=== PATIENT | female | born 1965 | race Caucasian/White ===

== ENCOUNTER → 2016-10-26 | Outpatient (CLI) | payer BC ==
[~2016-10-26] MED LIST: ATV/1 PO; CETI10CH PO; LYSI1TAB2 PO; NXM/40 PO; PSEU-170 PO; VLT500 PO
--- NOTE | 2016-10-26 14:48 | MAMMOGRAPHY REPORT ---
BILATERAL DIGITAL SCREENING MAMMOGRAM TOMOSYNTHESIS WITH CAD: 10/26/2016 CLINICAL HISTORY: Routine screening. Patient has no complaints. TECHNIQUE: Breast tomosynthesis in addition to standard 2D mammography was performed. Current study was also evaluated with a Computer Aided Detection (CAD) system. COMPARISON: Comparison is made to exams dated: 10/23/2015 mammogram, 10/21/2014 mammogram, 10/18/2013 m ammogram, 10/15/2013 mammogram, 10/05/2012 mammogram, and 09/01/2010 mammogram - [facility] enter. BREAST COMPOSITION: The tissue of both breasts is almost entirely fatty. FINDINGS: No suspicious masses, calcifications, or areas of architectural distortion are noted in ei ther breast. There has been no significant interval change compared to prior exams. A linear scar ma rker denotes a scar on the right medial breast. Bilateral benign-appearing calcifications are not si gnificantly changed. IMPRESSION: ACR BI-RADS CATEGORY 2: BENIGN There is no mammographic evidence of malignancy. A 1 year screening mammogram is recommended. The pa tient will receive written notification of the results. Approximately 10% of breast cancers are not detected with mammography. A negative mammographic report should not delay biopsy if a clinically suggestive mass is present. Domenica Sanchez M.D. ah/:10/26/2016 08:03:09 Horologist Apprentice: Luisa CASTILLO(Liban)(M), [facility] letter sent: Normal 1/2 BI-RADS Code: ACR BI-RADS Category 2: Benign
== END | disposition home or self-care (01) ==
LOC: C.MAMM 07:03
PROVIDERS: ATTEND Obstetrics & Gynecology
DX: Z12.31 Encounter for screening mammogram for malignant neoplasm of breast (principal)

== ENCOUNTER 2023-06-11 18:55 | Inpatient (IN) ==
--- OUTSIDE RECORDS SUMMARY | 2023-06-11 18:58 | External Medical Summary | Continuity of Care Document ---
Author Name Unknown Organization [id number] Address [address] [place] [address] [id number] Care Team Providers Care Helium Arc Welder Name Role Phone VonfarhadCourt Primary Care Physician [phone] Encounter [id number] Date(s): 02/23/23 - 02/23/23 [facility] Medicine [address] [address] Encounter Diagnosis Ingrown right big toenail(Discharge Diagnosis) - 02/23/23 Discharge Disposition: Home or Self Care Attending Physician: CELENA Fragoso Christina L Allergies, Adverse Reactions, Alerts Substance Reaction Severity Status Keflex Unknown reaction Active Animal dander Nasal congestion Moderate Active red dye 1 unknown reaction Mild Active chocolate Hives Moderate Active PCN (penicillin) rash Active 1ALL FOOD DYES Assessment and Plan Extracted from: Title:Follow Up Visit Author:CELENA Fragoso, Sudeep Caba Date:02/23/23 1.Ingrown right big toenail Again discussed with patient proper nail care and trimming of nail and use of emery boardnail evaluated no acute infection again patient defers in officepartial nail avulsion with phenol due to severe anxietyat this point not need of returning to the OR for removal due to lack of infectionarea was filed and pain resolved patient may follow-up with me on an as-needed basis. 17-minute follow-up visit, 5 minutes chart review, 12 minutes [id number] Medications cetirizine 10 mg oral tablet Start: 04/17/19 15:29:00 EST, 1 tab, PO, Daily, PRN: as needed for allergy symptoms Start Date: 04/17/19 Status: Ordered Cipro 500 mg oral tablet Start: 03/23/16 9:14:00, 1 tab, PO, q12h, Disp# 14 tab, Pharmacy: [id number] Start Date: 03/23/16 Stop Date: 03/30/16 Status: Ordered NexIUM 40 mg oral delayed release capsule Start: 03/23/16 8:25:00, 1 cap, PO, Daily Start Date: 03/23/16 Status: Ordered phenylephrine 10 mg oral tablet Start: 06/27/22 11:26:00 EST, 1 tab, PO, q4h, PRN: as needed for nasal congestion Start Date: 06/27/22 Status: Ordered Mental Status 02/23/23 Barriers to Learning one year None evide nt Mandatory Health Literacy Documentation Yes Health Literacy Communication Barriers N ever Primary Language Cuban Problem List Condition Confirmation Course Effective Dates Status Health St atus Informant Ingrown right big toenail Confirmed Active Ingrown toenail Confirmed Active Dysuria Confirmed Active Diagnosis Diagnosis Type Effective Dates Health Status Cl inical Service Informant Ingrown right big toenail Discharge Diagnosis 02/23/23 Procedures Procedure Date Related Diagnosis Body Site Status Ablation Completed Hysterectomy Completed Tonsillectomy and adenoidectomy Completed [place] tooth Completed Vital Signs Most recent to oldest [Reference Range]: 1 Height 160 cm (02/23/23 8:05 AM) Patient Weight 93.2 kg (02/23/23 8:05 AM) Body Mass Index 36.41 kg/m2 (02/23/23 8:05 AM) Social History Social History Type Response Smoking Status Never smoked cigaret prem Sex Female Ortho Outpt Note * CELENA Fragoso Christina L: PERFORM Event Display: Ortho Outpt Note Authored Date: [id number] Chief Complaint Right great toe Ingrown nail growing back Primary Care Provider DO Conner Carey K Subjective Patient is a verypleasant 57-year-old female presenting today for follow- uphistory of medial nail border of the right hallux that becomes painfulshe follows up today for evaluation last seen June 27, 2022. -Right halluxmedial nail borderwith some incurvation but no acute paronychia no infection pain is mildpatient has extreme anxiety for in office proceduresnot a candidate for an office partialnail avulsion with phenol due to previousreaction where she fainted would need an OR at this point deferringdue to lack of severe discomfort and no infection. Review of Systems No pertinent positives Objective Vitals & Measurements WT:93.200kg(Dosing) WT:93.2kg Physical Exam Problem focused right foot: Dorsalis pedis posterior tibial pulses fully palpable on the right foot. Neurovascular status is intactto all digits of the right foot. Medial nail border right hallux status post partial nail avulsion performed February 2020,no acutecellulitis no infection base of the toenailwiththickening callus tissueand toenail,no acuteparonychia present. Assessment/Plan 1.Ingrown right big toenail Again discussed with patient proper nail care and trimming of nail and use of emery boardnail evaluated no acute infection again patient defers in officepartial nail avulsion with phenol due to severe anxietyat this point not need of returning to the OR for removal due to lack of infectionarea was filed and pain resolved patient may follow-up with me on an as-needed basis. 17-minute follow-up visit, 5 minutes chart review, 12 minutes [id number] Electronic Signature on File Electronically Reviewed/Signed by: Christine Fragoso DPM Author Signature Dt/Tm:02/23/2023 08:18 AM Division of Sports Medicine CLR Patient Care team information Care Team Personnel Name: DO Conner Carey K Position: Referring DIRECT Member Role: Primary Care Provider Address: Address: [address] [place] [address] [place] Care Team Related Persons Name: HERSON TRIPP Address: home [address] [place] [address] [id number] [place] [address]
--- NOTE | 2023-06-11 19:28 | Emergency Department Note ---
History of Present Illness General Chief complaint: Cardiac Assessment Stated complaint: CHEST PAIN, DIFFICULY BREATHING Time Seen by Provider: 06/11/23 19:15 History of Present Illness Maximum Pain Intensity: 10 NAME: JANY IVORY AGE: 57 SEX: F : 1965 ARRIVES VIA: Walk-In INFORMANT: Patient ED PROVIDER(S): SAILAJA Farr, Iban Phillips, The patient is a 57-year-old female who arrives to the emergency department for evaluation of midsternal chest pain, and shortness of breath starting around 5:30 PM she reports she was sitting at the time visiting with family when she began to have pressure and burning in the center of her chest. She denies any history of cardiac events, she reports she does have a history of GERD. She denies fever, nausea, vomiting, lower extremity edema. Home Medications Medication Instructions Recorded Confirmed Type cetirizine 10 mg capsule 10 mg PO QAM 04/12/18 06/11/23 History cholecalciferol (vitamin D3) 50 2,000 units PO QAM 02/07/19 06/11/23 History mcg (2,000 unit) tablet esomeprazole magnesium 20 mg 20 mg PO QAM 01/30/20 06/11/23 History capsule,delayed release (Nexium) valacyclovir 500 mg tablet 500 mg PO BID PRN Cold Sores #30 04/18/22 06/11/23 Rx (Valtrex) tabs glucosamine sulfate 500 mg tablet 475 mg PO DAILY 08/24/22 06/11/23 History (Glucosamine) phenylephrine HCl 10 mg tablet 10 mg PO Q6H PRN Congestion 08/24/22 06/11/23 History lysine 500 mg tablet 500 mg PO 3XWK 06/11/23 06/11/23 History magnesium oxide 400 mg PO .3-4XWK 06/11/23 06/11/23 History miwvaaqfnxon-kespbdhb-jhmaiu 1 tab PO 3XWK 06/11/23 06/11/23 History tablet (Multivitamin 50 Plus tablet) Allergies Allergy/AdvReac Type Severity Reaction Status Date / Time adhesive Allergy Intermediate Rash Verified 06/11/23 21:58 metronidazole Allergy Intermediate RASH Verified 06/11/23 21:58 Penicillins Allergy Intermediate Rash Verified 06/11/23 21:58 ethinyl estradiol AdvReac Severe SEVERE Verified 06/11/23 21:58 [From Juan Jose (28)] GLAUCOMA norgestrel AdvReac Severe SEVERE Verified 06/11/23 21:58 [From Juan Jose ()] GLAUCOMA chocolate flavor AdvReac Intermediate COLD SORES Verified 06/11/23 21:58 AROUND MOUTH erythromycin base AdvReac Intermediate GI SYMPTOMS Verified 06/11/23 21:58 montelukast AdvReac Intermediate ABD Verified 06/11/23 21:58 PAIN,BLOATING, CONSTIPATION FOOD DYES AdvReac Intermediate UNKNOWN Uncoded 06/11/23 21:58 PER [facility] Past Med/Surg History Medical History Obesity Endometriosis Fibromyalgia GERD (gastroesophageal reflux disease) Temporomandibular joint disorder Migraine Asthma A CHILD Anxiety Surgical History History of colonoscopy History of cataract surgery Bilateral History of anesthesia reaction VERY SLOW TO WAKE UP History of breast biopsy History of total abdominal hysterectomy and bilateral salpingo-oophorectomy History of esophagogastroduodenoscopy (EGD) History of tooth extraction History of tonsillectomy History of adenoidectomy History of cardiac cath 2015 R/T VASOVAGAL EVENT (NO INTERVENTION) Family History Mother Hypothyroid Sister Hypothyroid Grandmother (Maternal) Diabetes Other No family history of adverse response to anesthesia Denies family history of Ovarian cancer Breast cancer Colorectal cancer Social History Smoking Status: Never smoker Second Hand Exposure: No; Do You Dip or Chew Tobacco: No; Tobacco Cessation Education Requested by Patient: No Hx Alcohol Use: Yes Alcohol type: hard liquor Hx Substance Use: No Preferred Language: Maltese Communication Ability: Effective Milling Machine Operator Required: No Beliefs That Will Affect Care: None Current Living Situation: Parent Current Living Situation Comment: Lives with Mother. Other Information That Helps Us Care for You: No Feels Safe at Home: Yes Safety Concerns: Feels Safe At This Time Assistive Devices: Glasses and Hospital Bed Physical Exam Vital Signs Vital Signs - 24 hr 06/11/23 18:57 06/11/23 19:28 06/11/23 19:46 Temperature 36.5 C Temperature Source Temporal Artery Scan Pulse Rate 79 76 Pulse Rate [Right Finger] 74 Respiratory Rate 20 19 Respiratory Effort / Characteristics Respiratory Depth Respiratory Pattern Blood Pressure 186/131 H Blood Pressure [Right Arm] 197/118 H Blood Pressure Mean 149 Blood Pressure Mean [Right Arm] 144 Pulse Oximetry 99 98 Oxygen Delivery Method Room Air Sepsis Recent Fever Within 48 Hours No Sepsis New/Unexplained Change in Mental Status No Sepsis Action Taken by Nursing No Action Required 06/11/23 21:00 06/11/23 22:31 06/11/23 23:00 Temperature Temperature Source Pulse Rate 68 Pulse Rate [Right Finger] 73 89 Respiratory Rate 16 19 18 Respiratory Effort / Characteristics Respiratory Depth Respiratory Pattern Blood Pressure Blood Pressure [Right Arm] 179/95 H Blood Pressure Mean Blood Pressure Mean [Right Arm] 123 Pulse Oximetry 97 97 95 Oxygen Delivery Method Room Air Room Air Room Air Sepsis Recent Fever Within 48 Hours Sepsis New/Unexplained Change in Mental Status Sepsis Action Taken by Nursing 06/11/23 23:15 06/12/23 00:00 Temperature Temperature Source Pulse Rate 70 Pulse Rate [Right Finger] 69 Respiratory Rate 20 Respiratory Effort / Characteristics Non-Labored Spontaneous Respiratory Depth Normal Respiratory Pattern Regular Blood Pressure Blood Pressure [Right Arm] Blood Pressure Mean Blood Pressure Mean [Right Arm] Pulse Oximetry 94 Oxygen Delivery Method Room Air Sepsis Recent Fever Within 48 Hours Sepsis New/Unexplained Change in Mental Status Sepsis Action Taken by Nursing VITALS: Vitals are noted on the nurse's note and reviewed by myself. Vital signs stable. GENERAL: 57-year-old, in no acute distress, nondiaphoretic, well-developed well- nourished. SKIN: The skin was without rashes, erythema, edema, or bruising. HEAD: Normocephalic atraumatic. HEART: Regular rate and rhythm without murmurs gallops or rubs. LUNGS: Clear to auscultation bilaterally without wheezes, rales or rhonchi. No retractions or accessory muscle use. ABDOMEN: Positive bowel sounds x 4. Soft, tender to palpation epigastric. Justice sign negative. No guarding or rebound tenderness. MUSCULOSKELETAL: No muscle atrophy, erythema, or edema noted. Full range of motion without joint tenderness in all extremities. No tenderness to palpation. Normal gait. Strength 5/5 throughout. NEURO: Patient was alert and oriented to person place and time. No focal neurological deficits. Course Administered Medications Cetirizine HCl (Cetirizine Hcl 10 Mg Tablet) 10 mg PO QAM [facility] Stop: 07/12/23 08:59 Last Admin: 06/12/23 07:54 Dose: 10 mg Documented By: MT Dextrose/Sodium Chloride (D5w And Nss) 1,000 mls @ 125 mls/hr IV .Q8H [facility] Stop: 07/12/23 01:49 Last Admin: 06/12/23 08:43 Dose: 125 mls/hr Documented By: Infusion: 06/12/23 08:43 Dose: Infused Documented By: Infusion: 06/12/23 06:05 Dose: 125 mls/hr Documented By: Infusion: 06/12/23 05:35 Dose: 0 mls/hr Documented By: Admin: 06/12/23 01:50 Dose: 125 mls/hr Documented By: HAKAN Pantoprazole Sodium 40 mg/ (Syringe) 10 mls @ 5 mls/min IV BID [facility] Stop: 07/12/23 08:59 Last Admin: 06/12/23 07:54 Dose: 5 mls/min Documented By: MT Cefoxitin Sodium 2,000 mg/ (Dextrose) 50 mls @ 100 mls/hr IV Q6H [facility]; Protocol Stop: 06/22/23 05:59 Last Infusion: 06/12/23 12:51 Dose: Infused Documented By: Admin: 06/12/23 11:54 Dose: 100 mls/hr Documented By: Infusion: 06/12/23 06:05 Dose: Infused Documented By: Admin: 06/12/23 05:35 Dose: 100 mls/hr Documented By: HAKAN Magnesium Oxide (Magnesium Oxide 400 Mg Tab) 400 mg PO MoWeFr@0900 [facility] Stop: 07/12/23 08:59 Last Admin: 06/12/23 07:54 Dose: 400 mg Documented By: MT Vitamin D (Cholecalciferol 25 Mcg (1000 Units) Tab) 50 mcg PO QAM [facility] Stop: 07/12/23 08:59 Last Admin: 06/12/23 07:54 Dose: 50 mcg Documented By: MT Discontinued Medications Sodium Chloride (Nss) 1,000 mls @ 999 mls/hr IV .Q1H1M STA Stop: 06/11/23 20:28 Last Infusion: 06/11/23 20:47 Dose: Infused Documented By: Admin: 06/11/23 19:44 Dose: 999 mls/hr Documented By: VITALYW Cefoxitin Sodium (Mefoxin) 2,000 mg in 60 mls @ 100 mls/hr IV NOW STA Stop: 06/11/23 22:28 Last Infusion: 06/11/23 23:19 Dose: Infused Documented By: Admin: 06/11/23 22:41 Dose: 100 mls/hr Documented By: ASW Morphine Sulfate (Morphine Sulfate 4 Mg/Ml 1 Ml Carp\Vial) 4 mg IV NOW STA Stop: 06/11/23 19:29 Last Admin: 06/11/23 19:43 Dose: 4 mg Documented By: VITALYW Ondansetron HCl (Ondansetron Inj 2 Mg/Ml 2 Ml Vial) 4 mg IV NOW STA Stop: 06/11/23 19:29 Last Admin: 06/11/23 19:44 Dose: 4 mg Documented By: VITALYW Ondansetron HCl (Ondansetron Inj 2 Mg/Ml 2 Ml Vial) 4 mg IV NOW STA Stop: 06/11/23 20:03 Last Admin: 06/11/23 22:32 Dose: Not Given Documented By: VITALYW Medical Decision Making Differential Diagnosis Cardiac ischemia, aortic dissection, pulmonary embolism, pneumothorax, pneumonia, pericarditis, myocarditis, esophageal rupture, GERD, cholecystitis, pancreatitis, musculoskeletal, as well as other pathologies. Medical Records Attestation: I reviewed the patient's medical records. Home Medications Current Medication List: was personally reviewed by me Laboratory Data Attestation: I reviewed the patient's lab results. Leukocytosis 15.4, hemoglobin 13.9, hematocrit 40.6, elevated liver enzymes, no electrolyte abnormalities, negative troponin, urine negative for infection. 06/12/23 05:59 06/12/23 05:59 Lab Results 06/11/23 06/11/23 Range/Units 19:32 22:42 WBC 15.40 H (4.8-10.8) K/ul RBC 4.67 (4.20-5.40) M/uL Hgb 13.9 (12.0-16.0) g/dl Hct 40.6 (37.0-47.0) % MCV 86.9 (80.0-100.0) fL MCH 29.8 (25.0-34.0) pg MCHC 34.2 (32.0-36.0) g/dL RDW Std Deviation 42.4 (36.4-46.3) fL RDW Coeff of Cj 13.5 (11.5-14.5) % Plt Count 340 (130-400) K/uL MPV 10.3 (9.4-12.4) fL Immature Gran % (Auto) 0.5 % Neut % (Auto) 78.4 % Lymph % (Auto) 13.6 % [place] % (Auto) 5.7 % Eos % (Auto) 1.4 % Baso % (Auto) 0.4 % Neut # (Auto) 12.09 H (1.40-6.50) K/uL Lymph # (Auto) 2.09 (1.20-3.40) K/uL [place] # (Auto) 0.88 H (0.11-0.59) K/uL Eos # (Auto) 0.21 (0.00-0.50) K/uL Baso # (Auto) 0.06 (0.00-0.20) K/uL Immature Gran # (Auto) 0.07 (0.01-0.20) K/uL Sodium 140 (136-145) mmol/L Potassium 3.8 (3.5-5.1) mmol/L Chloride 106 (98-107) mmol/L Carbon Dioxide 24 (21-32) mmol/L Anion Gap 10 (3-11) BUN 12 (6-23) mg/dl Creatinine 0.67 (0.6-1.2) mg/dl Est Cr Clr Drug Dosing Not Reportable Est GFR ( Amer) 113.9 ml/min Est GFR (Non-Af Amer) 98.3 ml/min BUN/Creatinine Ratio 17.9 (10-20) Glucose 116 H (70-99(Fasting)) mg/dl Calcium 9.4 (8.6-10.3) mg/dl Total Bilirubin 0.7 (0.2-1.0) mg/dl AST 76 H (13-39) U/L ALT 59 H (7-52) U/L Alkaline Phosphatase 121 H (34-104) U/L Troponin I High Sens 8.1 (0-14) pg/ml Total Protein 7.3 (6.0-8.3) gm/dl Albumin 4.4 (3.4-5.0) gm/dl Globulin 2.9 (2.5-4.0) gm/dl Albumin/Globulin Ratio 1.5 (0.9-2) Lipase 23 (11-82) U/L Urine Color Yellow Urine Appearance Clear (Clear) Urine pH 6.5 (4.5-7.5) Ur Specific [place] 1.015 (1.000-1.030) Urine Protein Negative (Negative) Urine Glucose (UA) Negative (Negative) Urine Ketones Negative (Negative) Urine Blood Negative (Negative) Urine Nitrite Negative (Negative) Urine Bilirubin Negative (Negative) Urine Urobilinogen Negative (Negative) Ur Leukocyte Esterase Negative (Negative) Imaging Data Attestation: I personally reviewed and interpreted this imaging study as follows: My Impression: Initial x-ray interpretation per myself shows no acute cardiopulmonary abnormality. Will await formal radiology report. Radiologist's Impression: Chest X-Ray 06/11/23 19:28 XR chest 1V portable HISTORY: Chest pain, nonspecific COMPARISON: None. FINDINGS: There are low lung volumes. No pneumothorax. No pleural effusions. The cardiac silhouette is mildly enlarged. No focal lung consolidations to suggest a pneumonia. No evidence for pulmonary edema. No acute fractures. IMPRESSION: Mild cardiomegaly. Otherwise, no acute process within the chest. ACT 112: Negative or not required by law. Electronically signed by: Dashawn Geiger M.D. 06/12/2023 7:02 AM KUB X-Ray 06/11/23 19:28 KUB HISTORY: Acute epigastric abdominal pain epigastric pain COMPARISON: Ultrasound of same day FINDINGS: No acute process of the imaged lower chest. Nonobstructive bowel gas pattern. The renal shadows are obscured by bowel gas. Moderate fecal retention. No renal calculi. No ureteral calculi. No pneumoperitoneum or pneumatosis. No fracture. IMPRESSION: Nonobstructive bowel gas pattern. ACT 112: Negative or not required by law. The above report was generated using voice recognition software. It may contain grammatical, syntax or spelling errors. Electronically signed by: Juan F Smith M.D. 06/12/2023 7:19 AM ECG Data Attestation: I personally reviewed and interpreted this ECG as follows: Indication: + abdominal pain and + chest pain Rate (beats per minute): 70 Rhythm: + normal sinus ECG [place]: + Normal ECG ST segments: + Nonspecific ST abnormalities Comparison ECG Date: from (01/2020) Change: no significant change (01/2020) Blood Pressure Blood Pressure Findings: Elevated blood pressure Blood Pressure Disposition: elevated BP felt to be situational MDM Narrative The patient is a 57-year-old female who presents today with her mother as secondary historian for the above stated complaint. Upon assessment, the patient is severely TTP in the epigastric region. She denies any previous hx of gallbladder issues, however states she does struggle with GERD. She reports an acute onset of severe pain and SHOB. A saline lock was placed for medication administration and labs. EKG was performed which showed NSR at a rate of 70bmp with no significant change from her previous EKG obtained in 01/2020. Labs showed leukocytosis 15.4, hemoglobin 13.9, hematocrit 40.6, elevated liver enzymes, no electrolyte abnormalities, negative troponin, urine negative for infection. A chest x-ray was obtained which showed no acute cardiopulmonary process per my initial interpretation. Formal radiology report showed slight cardiomegaly. KUB x-ray showed a nonobstructive bowel gas pattern with moderate fecal retention per formal report. US imaging was obtained based on physical exam which showed cholelithiasis without cholecystitis. Based on the workup and the patient still have significant TTP post morphine administration and hydration, I consulted general surgery. Kyaw Goodson PA-C visited the patient and stated she could be admitted to [facility] for further evaluation. The patient was agreeable to this plan. She was provided with Mefoxin for antibiotic coverage. After speaking with case management, I was put in contact with Dr. Michel who then took over care of the patient. Continuous environmental monitoring specialist: Order was placed for continuous environmental monitoring specialist. Patient was placed on the environmental monitoring specialist. Patient was noted to be in NSR at an initial rate of 76 bpm. The patient's case was discussed with Dr. Phillips who agreed with my evaluation and treatment plan. Impression & Plan Elevated liver enzymes, Cholelithiasis, Epigastric abdominal pain Discharge Plan Visit Data Chief Complaint: Cardiac Assessment Stated Complaint: CHEST PAIN, DIFFICULY BREATHING ED Provider: Iban Phillips ED Midlevel Provider: Christine Espinosa Discharge Problem: Elevated liver enzymes, Cholelithiasis, Epigastric abdominal pain Patient Disposition: Admitted As Inpatient Discharge Instructions Interventions: ED Discharge Assessment Last Done: 06/12/23 02:06 Discharge Problem: Cholelithiasis Qualifiers: Cholelithiasis location: gallbladder Cholecystitis presence: with cholecystitis Cholecystitis acuity: acute Biliary obstruction: without biliary obstruction Q ualified Code(s): K80.00 - Calculus of gallbladder with acute cholecystitis without obstruction
[2023-06-11] MEDS: MoRPHine SULFATE 4 MG/ML 1 ML CARP\\VIAL IV STA (19:43)
[2023-06-11] MEDS: ONDANSETRON INJ 2 MG/ML 2 ML VIAL IV STA ×2 (19:44→22:32)
[2023-06-11] MEDS: SODIUM CHLORIDE 0.9% 1,000 ML IV STA (19:44)
[2023-06-11 19:56] LABS: Basophils # (auto) 0.06 K/uL (0.00-0.20); Basophils % (auto) 0.4 %; Eosinophils # (auto) 0.21 K/uL (0.00-0.50); Eosinophils % (auto) 1.4 %; Hematocrit (blood only) 40.6 % (37.0-47.0); Hemoglobin 13.9 g/dl (12.0-16.0); Immature Granulocytes # (auto) 0.07 K/uL (0.01-0.20); Immature Granulocytes % (auto) 0.5 %; Lymphocytes # (auto) 2.09 K/uL (1.20-3.40); Lymphocytes % (auto) 13.6 %; Mean Corpuscular Hemoglobin 29.8 pg (25.0-34.0); Mean Corpuscular Hgb Conc 34.2 g/dL (32.0-36.0); Mean Corpuscular Volume 86.9 fL (80.0-100.0); Mean Platelet Volume 10.3 fL (9.4-12.4); Monocytes # (auto) 0.88 K/uL (0.11-0.59); Monocytes % (auto) 5.7 %; Neutrophils # (auto) 12.09 K/uL (1.40-6.50); Neutrophils % (auto) 78.4 %; Platelet Count 340 K/uL (130-400); RDW Coefficient of Variation 13.5 % (11.5-14.5); RDW Standard Deviation 42.4 fL (36.4-46.3); Red Blood Count 4.67 M/uL (4.20-5.40)
[2023-06-11 20:09] LABS: Alanine Aminotransferase 59 U/L (7-52); Albumin Globulin Ratio 1.5 (0.9-2); Albumin Level 4.4 gm/dl (3.4-5.0); Alkaline Phosphatase 121 U/L (34-104); Anion Gap 10 (3-11); Aspartate Aminotransferase 76 U/L (13-39); BUN Creatinine Ratio 17.9 (10-20); Bilirubin,Total 0.7 mg/dl (0.2-1.0); Blood Urea Nitrogen 12 mg/dl (6-23); Calcium 9.4 mg/dl (8.6-10.3); Carbon Dioxide 24 mmol/L (21-32); Chloride 106 mmol/L (98-107); Est GFR (African American) 113.9 ml/min; Est GFR (Non-African American) 98.3 ml/min; Globulin 2.9 gm/dl (2.5-4.0); Glucose 116 mg/dl (70-99(Fasting)); Lipase 23 U/L (11-82); Potassium 3.8 mmol/L (3.5-5.1); Sodium 140 mmol/L (136-145); Total Protein 7.3 gm/dl (6.0-8.3)
[2023-06-11 20:14] LABS: Troponin I High Sensitivity 8.1 pg/ml (0-14)
--- NOTE | 2023-06-11 21:29 | Ultrasound Report ---
Exam(s): US GALLBLADDER EXAM: US Abdomen Limited, Gallbladder CLINICAL HISTORY: Reason for exam: epigastric pain. TECHNIQUE: Real-time ultrasound of the right upper quadrant with image documentation. COMPARISON: No relevant prior studies available. FINDINGS: Liver: Fatty infiltration of the liver. Gallbladder: Cholelithiasis without sonographic evidence of acute cholecystitis. Common bile duct: Unremarkable as visualized. No stones. No dilation. Pancreas: Unremarkable as visualized. Right kidney: Small echogenic foci within the right renal parenchyma could represent a angiomyolipoma or renal calculus. No hydronephrosis. IMPRESSION: Small echogenic foci within the right renal parenchyma could represent a angiomyolipoma or renal calculus. Cholelithiasis without sonographic evidence of acute cholecystitis. Electronically signed by: Alva Purcell MD 06/11/23 21:28 PM
--- NOTE | 2023-06-11 22:33 | Surgery Consultation ---
Date of Consultation June 11, 2023 Assessment & Plan (1) Cholelithiasis: I discussed with the treating clinician emergency department the patient is being admitted on the hospitalist service. It is unclear if the patient's symptomatology is related to biliary colic and we will therefore proceed as follows: Provide analgesics Provide antiemetics Provide IV fluid for hydration Implement n.p.o. status The patient has had antibiotics in form of Mefoxin initiated by the clinician the emergency department. As the patient does have several lab abnormalities we will repeat her labs in the morning including a CBC, CMP, lipase, as well as check an INR (this has been ordered) I did discuss with the patient that she may be suffering from biliary colic but is unclear at this time. I did discuss with her that decision about whether or not to proceed with cholecystectomy will be dependent on her pending laboratory values in the morning. If, upon further evaluation is still unclear if patient is suffering from biliary colic a HIDA scan may be warranted prior to considering any surgical intervention. In addition, if the patient does not have convincing evidence of cholecystitis gastroenterology consultation may be warranted due to the degree of epigastric pain the patient was experiencing Additional recommendations to be forthcoming based on pending labs/studies as they are completed and her clinical course as an Supervising Physician Co-Signing Physician Notes pnt d/w Kyaw Goodson, labs and imaging reviewed, agree with above. cholelithiasis, no cholecystitis. tentatively plan for surgery tomorrow, giorgio chance will assess in am. History of Present Illness Reason for Consultation: Cholelithiasis History of Present Illness This is a 57-year-old female who presented to the emergency department secondary to abdominal pain. Patient notes that her pain began at approximate 5:30 PM t his evening and is primary located in the epigastric area with some of the pain also in the right upper quadrant. She notes that the pain is otherwise nonradiating and she does not note any mitigating factors. She does not feel as though the pain was related to meals. The patient says that over the past several weeks to months she has been getting some epigastric pain after eating. With her current symptomatology she does not have any nausea or vomiting. She denies any fevers, shakes, or chills. Patient does note that she has had prior abdominal surgeries in the form of a total hysterectomy performed for endometriosis. She also notes that she has had a cardiac ablation for an unspecified tachycardia and she currently does not take any anticoagulants Since arrival to the hospital patient has had labs and imaging which independent reviewed. Chest x-ray did not demonstrate any pleural effusions or pneumonia. A KUB was performed that did not show any free air or an obstructive pattern. A gallbladder ultrasound was performed that showed cholelithiasis. There is no evidence of cholecystitis on this study. Labs include a CBC her white blood cell count was elevated 15.4. Hemoglobin, hematocrit, platelet count were normal. Chemistry profile showed sodium and potassium along with the BUN and creatinine were normal. Patient's total bilirubin was normal. Her transaminases were elevated with an AST of 76 and an ALT of 59. Alkaline phosphatase was elevated at 121. There is no elevation of patient's lipase. At the time of my interview she was resting comfortably in bed and she was in no distress Allergies Allergy/AdvReac Type Severity Reaction Status Date / Time adhesive Allergy Intermediate Rash Verified 06/11/23 21:58 metronidazole Allergy Intermediate RASH Verified 06/11/23 21:58 Penicillins Allergy Intermediate Rash Verified 06/11/23 21:58 ethinyl estradiol AdvReac Severe SEVERE Verified 06/11/23 21:58 [From Juan Jose (28)] GLAUCOMA norgestrel AdvReac Severe SEVERE Verified 06/11/23 21:58 [From Juan Jose (28)] GLAUCOMA chocolate flavor AdvReac Intermediate COLD SORES Verified 06/11/23 21:58 AROUND MOUTH erythromycin base AdvReac Intermediate GI SYMPTOMS Verified 06/11/23 21:58 montelukast AdvReac Intermediate ABD Verified 06/11/23 21:58 PAIN,BLOATING, CONSTIPATION FOOD DYES AdvReac Intermediate UNKNOWN Uncoded 06/11/23 21:58 PER [facility] Home Medications Medication Instructions Recorded Confirmed Type cetirizine 10 mg capsule 10 mg PO QAM 04/12/18 06/11/23 History cholecalciferol (vitamin D3) 50 2,000 units PO QAM 02/07/19 06/11/23 History mcg (2,000 unit) tablet esomeprazole magnesium 20 mg 20 mg PO QAM 01/30/20 06/11/23 History capsule,delayed release (Nexium) valacyclovir 500 mg tablet 500 mg PO BID PRN Cold Sores #30 04/18/22 06/11/23 Rx (Valtrex) tabs glucosamine sulfate 500 mg tablet 475 mg PO DAILY 08/24/22 06/11/23 History (Glucosamine) phenylephrine HCl 10 mg tablet 10 mg PO Q6H PRN Congestion 08/24/22 06/11/23 History lysine 500 mg tablet 500 mg PO 3XWK 06/11/23 06/11/23 History magnesium oxide 400 mg PO .3-4XWK 06/11/23 06/11/23 History fextyplahqxc-jdqfxnhn-citgvm 1 tab PO 3XWK 06/11/23 06/11/23 History tablet (Multivitamin 50 Plus tablet) Patient History Medical History Obesity Endometriosis Fibromyalgia GERD (gastroesophageal reflux disease) Temporomandibular joint disorder Migraine Asthma A CHILD Anxiety Surgical History History of colonoscopy History of cataract surgery Bilateral History of anesthesia reaction VERY SLOW TO WAKE UP History of breast biopsy History of total abdominal hysterectomy and bilateral salpingo-oophorectomy History of esophagogastroduodenoscopy (EGD) History of tooth extraction History of tonsillectomy History of adenoidectomy History of cardiac cath 2015 R/T VASOVAGAL EVENT (NO INTERVENTION) Family History Mother Hypothyroid Sister Hypothyroid Grandmother (Maternal) Diabetes Other No family history of adverse response to anesthesia Denies family history of Ovarian cancer Breast cancer Colorectal cancer Social History Smoking Status: Never smoker Second Hand Exposure: No; Do You Dip or Chew Tobacco: No; Hx Alcohol Use: Yes Alcohol type: beer, wine and hard liquor Hx Substance Use: No Preferred Language: Niuean Communication Ability: Effective Hemmer Lockstitch Required: No Beliefs That Will Affect Care: None Current Living Situation: Parent Current Living Situation Comment: MOTHER LIVES WITH PT Feels Safe at Home: Yes Assistive Devices: Contacts and Glasses Review of Systems Constitutional: no fever and no chills Eyes: + corrective lenses Ear, Nose, Mouth, Throat: no ear pain Respiratory: no cough Cardiovascular: no chest pain Gastrointestinal: as per Subjective / HPI Genitourinary: no dysuria Musculoskeletal: no back pain Integumentary: no rash Neurologic: no localized weakness Physical Exam Constitutional: WD/WN, vitals as above Eyes: + anicteric sclerae Wears glasses ENMT: Ears: no hearing impairment and no external ear abnormality Mouth: no oropharynx abnormality Neck: trachea midline Respiratory: normal respiratory effort; no respiratory distress and no labored breathing Cardiovascular: Rate/Rhythm: regular rate and regular rhythm Gastrointestinal (Abdomen): This abdomen is soft and nondistended. It is nonrigid. There is no rebound tenderness or guarding. The patient did have pain with palpation most pronounced in the epigastric area and also to a lesser degree in the right upper quadrant Musculoskeletal: No calf tenderness Skin: no rashes Neurologic: moves all extremities Psychiatric: A+Ox3, euthymic affect Results & Data Vital Signs (Past 12 Hours) Vital Signs Temp Pulse Pulse Resp BP BP Pulse Ox 06/11/23 21:00 73 16 97 06/11/23 19:46 74 19 197/118 H 98 06/11/23 19:28 76 06/11/23 18:57 36.5 C 79 20 186/131 H 99 O2 Del Method 06/11/23 21:00 Room Air 06/11/23 19:46 06/11/23 19:28 06/11/23 18:57 Room Air PG Care Time/CCT Total # of Minutes Spent Total Time Spent with Patient: Total time spent is greater than 50% in coordination of care (as documented) at patient's floor/unit and/or counseling patient: Coding Level of Care Code 23103 IN/OBS CONSULT LVL 5,80M Diagnoses Cholelithiasis K80.20
[2023-06-11] MEDS: cefOXitin 2,000 MG/60 ML BAG IV STA (22:41)
[2023-06-11 22:51] LABS: Appearance Urine Clear (Clear); Bilirubin Urine Negative (Negative); Blood Urine Negative (Negative); Color Urine Yellow; Glucose Urine UA Negative (Negative); Ketones Urine Negative (Negative); Leukocyte Esterase Urine Negative (Negative); Nitrite Urine Negative (Negative); Protein Urine Negative (Negative); Specific Gravity Urine 1.015 (1.000-1.030); Urobilinogen Urine Negative (Negative); pH Urine 6.5 (4.5-7.5)
--- NOTE | 2023-06-12 01:11 | History & Physical Report ---
Date of Service June 12, 2023 Assessment & Plan (1) Abdominal pain: Plan: 57-year-old female with past medical significant for allergic rhinitis, esophagitis, fibromyalgia, migraine, history of acute transverse myelitis, history of panic attack presents with epigastric abdominal pain. Patient states pain started after lunch and she thought it was her GERD but from 5:30 PM the pain was severe in nature which prompted her come to the ER. Pain is radiating to the sides of the upper abdomen. In the ER she was nauseous. Having chest pain when taking deep breath. When the pain is severe patient is feeling short of breath. Denies any fevers. No headache. No cough. Normal bowel and bladder movements. Current resting comfortably and hemodynamically stable. Abdominal pain Possible biliary colic Gallbladder ultrasound shows gallstones without cholecystitis Mild transaminitis, alkaline phosphatase 121 Plan for repeat labs in a.m. Appreciate surgery inputs May need HIDA scan Will keep n.p.o., IV fluids, IV antiemetics as needed, IV Dilaudid as needed -IV cefoxitin given in the ER which will be continued Close monitor History of esophagitis Will place on IV Protonix Abnormal ECG Both sets of troponin negative Will follow echo DVT prophylaxis SCDs for now Disposition Medical floor Full code History of Present Illness Chief Complaint: Abdominal pain Primary Care Provider: Court Conner DO 57-year-old female with past medical history significant for allergic rhinitis, esophagitis, fibromyalgia, migraine, history of acute transverse myelitis, history of panic attack presents with epigastric abdominal pain. Patient states pain started after lunch and she thought it was her GERD but from 5:30 PM the pain was severe in nature which prompted her come to the ER. Pain is radiating to the sides of the upper abdomen. In the ER she was nauseous. Having chest pain when taking deep breath. When the pain is severe patient is feeling short of breath. Denies any fevers. No headache. No cough. Normal bowel and bladder movements. Current resting comfortably and hemodynamically stable. Past medical history. As mentioned above Past surgical history. Foot surgery. Right breast excisional biopsy. Ligation oviducts. Tonsillectomy. Bilateral cataract surgery. Total hysterectomy. Upper endoscopy. Social history. No smoking. Alcohol wine with dinner. No drug use. Family history. Mother has allergies. Asthma. Father had prostate cancer. Maternal grandmother had asthma. Allergies Allergy/AdvReac Type Severity Reaction Status Date / Time adhesive Allergy Intermediate Rash Verified 06/11/23 21:58 metronidazole Allergy Intermediate RASH Verified 06/11/23 21:58 Penicillins Allergy Intermediate Rash Verified 06/11/23 21:58 ethinyl estradiol AdvReac Severe SEVERE Verified 06/11/23 21:58 [From [facility] ()] GLAUCOMA norgestrel AdvReac Severe SEVERE Verified 06/11/23 21:58 [From [facility] ()] GLAUCOMA chocolate flavor AdvReac Intermediate COLD SORES Verified 06/11/23 21:58 AROUND MOUTH erythromycin base AdvReac Intermediate GI SYMPTOMS Verified 06/11/23 21:58 montelukast AdvReac Intermediate ABD Verified 06/11/23 21:58 PAIN,BLOATING, CONSTIPATION FOOD DYES AdvReac Intermediate UNKNOWN Uncoded 06/11/23 21:58 PER [facility] Home Medications Medication Instructions Recorded Confirmed Type cetirizine 10 mg capsule 10 mg PO QAM 04/12/18 06/11/23 History cholecalciferol (vitamin D3) 50 2,000 units PO QAM 02/07/19 06/11/23 History mcg (2,000 unit) tablet esomeprazole magnesium 20 mg 20 mg PO QAM 01/30/20 06/11/23 History capsule,delayed release (Nexium) valacyclovir 500 mg tablet 500 mg PO BID PRN Cold Sores #30 04/18/22 06/11/23 Rx (Valtrex) tabs glucosamine sulfate 500 mg tablet 475 mg PO DAILY 08/24/22 06/11/23 History (Glucosamine) phenylephrine HCl 10 mg tablet 10 mg PO Q6H PRN Congestion 08/24/22 06/11/23 History lysine 500 mg tablet 500 mg PO 3XWK 06/11/23 06/11/23 History magnesium oxide 400 mg PO .3-4XWK 06/11/23 06/11/23 History huhezauyygdv-fpotzcvz-phfuor 1 tab PO 3XWK 06/11/23 06/11/23 History tablet (Multivitamin 50 Plus tablet) Past Med/Surg History Medical History Obesity Endometriosis Fibromyalgia GERD (gastroesophageal reflux disease) Temporomandibular joint disorder Migraine Asthma A CHILD Anxiety Surgical History History of colonoscopy History of cataract surgery Bilateral History of anesthesia reaction VERY SLOW TO WAKE UP History of breast biopsy History of total abdominal hysterectomy and bilateral salpingo-oophorectomy History of esophagogastroduodenoscopy (EGD) History of tooth extraction History of tonsillectomy History of adenoidectomy History of cardiac cath 2015 R/T VASOVAGAL EVENT (NO INTERVENTION) Family History Mother Hypothyroid Sister Hypothyroid Grandmother (Maternal) Diabetes Other No family history of adverse response to anesthesia Denies family history of Ovarian cancer Breast cancer Colorectal cancer Social History Smoking Status: Never smoker Second Hand Exposure: No; Do You Dip or Chew Tobacco: No; Tobacco Cessation Education Requested by Patient: No Hx Alcohol Use: Yes Alcohol type: hard liquor Hx Substance Use: No Preferred Language: Icelandic Communication Ability: Effective Delicatessen Manager Required: No Beliefs That Will Affect Care: None Current Living Situation: Parent Current Living Situation Comment: Lives with Mother. Other Information That Helps Us Care for You: No Feels Safe at Home: Yes Safety Concerns: Feels Safe At This Time Assistive Devices: Glasses and Hospital Bed Review of Systems Review of Systems: All systems reviewed & are unremarkable except as noted in HPI & below Physical Exam Physical Exam: General-Not in distress Head- atraumatic Eyes- PERRL. ENT- oropharynx clear Neck- supple, no JVD. Lungs- clear to auscultation no wheezing or crackles. Heart- regular rhythm; no murmur, no gallop. Abdomen- normal bowel sounds, soft, tenderness in epigastric region and RUQ and LUQ . Extremities- no pretibial edema, no erythema seen. Neuro- alert, oriented x 3; PERRL, no facial palsy; no dysarthria; moves extremities. Skin- warm & dry Results & Data Results & Data Vital Signs (Past 12 Hours) Vital Signs Temp Pulse Pulse Resp BP BP Pulse Ox 06/12/23 00:00 69 20 94 06/11/23 23:15 70 06/11/23 23:00 68 18 95 06/11/23 22:31 89 19 179/95 H 97 06/11/23 21:00 73 16 97 06/11/23 19:46 74 19 197/118 H 98 06/11/23 19:28 76 06/11/23 18:57 36.5 C 79 20 186/131 H 99 O2 Del Method 06/12/23 00:00 Room Air 06/11/23 23:15 06/11/23 23:00 Room Air 06/11/23 22:31 Room Air 06/11/23 21:00 Room Air 06/11/23 19:46 06/11/23 19:28 06/11/23 18:57 Room Air Diagnostic Findings Laboratory Results WBC 15.40 K/ul (4.8-10.8) H 06/11/23 19:32 RBC 4.67 M/uL (4.20-5.40) 06/11/23 19:32 Hgb 13.9 g/dl (12.0-16.0) 06/11/23 19:32 Hct 40.6 % (37.0-47.0) 06/11/23 19:32 MCV 86.9 fL (80.0-100.0) 06/11/23 19:32 MCH 29.8 pg (25.0-34.0) 06/11/23 19:32 MCHC 34.2 g/dL (32.0-36.0) 06/11/23 19:32 RDW Std Deviation 42.4 fL (36.4-46.3) 06/11/23 19:32 RDW Coeff of Cj 13.5 % (11.5-14.5) 06/11/23 19:32 Plt Count 340 K/uL (130-400) 06/11/23 19:32 MPV 10.3 fL (9.4-12.4) 06/11/23 19:32 Immature Gran % (Auto) 0.5 % 06/11/23 19:32 Neut % (Auto) 78.4 % 06/11/23 19:32 Lymph % (Auto) 13.6 % 06/11/23 19:32 Millard % (Auto) 5.7 % 06/11/23 19:32 Eos % (Auto) 1.4 % 06/11/23 19:32 Baso % (Auto) 0.4 % 06/11/23 19:32 Neut # (Auto) 12.09 K/uL (1.40-6.50) H 06/11/23 19:32 Lymph # (Auto) 2.09 K/uL (1.20-3.40) 06/11/23 19:32 Millard # (Auto) 0.88 K/uL (0.11-0.59) H 06/11/23 19:32 Eos # (Auto) 0.21 K/uL (0.00-0.50) 06/11/23 19:32 Baso # (Auto) 0.06 K/uL (0.00-0.20) 06/11/23 19:32 Immature Gran # (Auto) 0.07 K/uL (0.01-0.20) 06/11/23 19:32 Sodium 140 mmol/L (136-145) 06/11/23 19:32 Potassium 3.8 mmol/L (3.5-5.1) 06/11/23 19:32 Chloride 106 mmol/L (98-107) 06/11/23 19:32 Carbon Dioxide 24 mmol/L (21-32) 06/11/23 19:32 Anion Gap 10 (3-11) 06/11/23 19:32 BUN 12 mg/dl (6-23) 06/11/23 19:32 Creatinine 0.67 mg/dl (0.6-1.2) 06/11/23 19:32 Est Cr Clr Drug Dosing Not Reportable 06/11/23 19:32 Est GFR ( Amer) 113.9 ml/min 06/11/23 19:32 Est GFR (Non-Af Amer) 98.3 ml/min 06/11/23 19:32 BUN/Creatinine Ratio 17.9 (10-20) 06/11/23 19:32 Glucose 116 mg/dl (70-99(Fasting)) H 06/11/23 19:32 Calcium 9.4 mg/dl (8.6-10.3) 06/11/23 19:32 Total Bilirubin 0.7 mg/dl (0.2-1.0) 06/11/23 19:32 AST 76 U/L (13-39) H 06/11/23 19:32 ALT 59 U/L (7-52) H 06/11/23 19:32 Alkaline Phosphatase 121 U/L (34-104) H 06/11/23 19:32 Troponin I High Sens 8.1 pg/ml (0-14) 06/11/23 19:32 Total Protein 7.3 gm/dl (6.0-8.3) 06/11/23 19:32 Albumin 4.4 gm/dl (3.4-5.0) 06/11/23 19:32 Globulin 2.9 gm/dl (2.5-4.0) 06/11/23 19:32 Albumin/Globulin Ratio 1.5 (0.9-2) 06/11/23 19:32 Lipase 23 U/L (11-82) 06/11/23 19:32 Urine Color Yellow 06/11/23 22:42 Urine Appearance Clear (Clear) 06/11/23 22:42 Urine pH 6.5 (4.5-7.5) 06/11/23 22:42 Ur Specific [place] 1.015 (1.000-1.030) 06/11/23 22:42 Urine Protein Negative (Negative) 06/11/23 22:42 Urine Glucose (UA) Negative (Negative) 06/11/23 22:42 Urine Ketones Negative (Negative) 06/11/23 22:42 Urine Blood Negative (Negative) 06/11/23 22:42 Urine Nitrite Negative (Negative) 06/11/23 22:42 Urine Bilirubin Negative (Negative) 06/11/23 22:42 Urine Urobilinogen Negative (Negative) 06/11/23 22:42 Ur Leukocyte Esterase Negative (Negative) 06/11/23 22:42 Impressions Gallbladder Ultrasound 06/11/23 19:28 Exam(s): US GALLBLADDER EXAM: US Abdomen Limited, Gallbladder CLINICAL HISTORY: Reason for exam: epigastric pain. TECHNIQUE: Real-time ultrasound of the right upper quadrant with image documentation. COMPARISON: No relevant prior studies available. FINDINGS: Liver: Fatty infiltration of the liver. Gallbladder: Cholelithiasis without sonographic evidence of acute cholecystitis. Common bile duct: Unremarkable as visualized. No stones. No dilation. Pancreas: Unremarkable as visualized. Right kidney: Small echogenic foci within the right renal parenchyma could represent a angiomyolipoma or renal calculus. No hydronephrosis. IMPRESSION: Small echogenic foci within the right renal parenchyma could represent a angiomyolipoma or renal calculus. Cholelithiasis without sonographic evidence of acute cholecystitis. Electronically signed by: Alva Purcell MD 06/11/23 21:28 PM ECG Additional Comments: Normal sinus rhythm rate of 69. Q waves inferior leads. Code Status & VTE Plan VTE Prophylaxis Plan VTE Prophylaxis will be ordered: Yes
[2023-06-12] MEDS ORDERED: HYDROmorphone INJ 0.5 MG/0.5 ML SYR IV PRN (01:50)
[2023-06-12] MEDS ORDERED: ONDANSETRON INJ 2 MG/ML 2 ML VIAL IV PRN (01:50)
[2023-06-12] MEDS: D5W AND NSS 1,000 ML IV SCH (01:50)
[2023-06-12] MEDS: cefOXitin 2,000 MG in DEXTROSE 5 % MINI-B 50 ML IV SCH (05:35)
[2023-06-12 06:27] LABS: Basophils # (auto) 0.06 K/uL (0.00-0.20); Basophils % (auto) 0.7 %; Eosinophils # (auto) 0.14 K/uL (0.00-0.50); Eosinophils % (auto) 1.6 %; Hematocrit (blood only) 36.9 % (37.0-47.0); Hemoglobin 12.4 g/dl (12.0-16.0); Immature Granulocytes # (auto) 0.04 K/uL (0.01-0.20); Immature Granulocytes % (auto) 0.4 %; Lymphocytes # (auto) 2.46 K/uL (1.20-3.40); Lymphocytes % (auto) 27.3 %; Mean Corpuscular Hemoglobin 29.5 pg (25.0-34.0); Mean Corpuscular Hgb Conc 33.6 g/dL (32.0-36.0); Mean Corpuscular Volume 87.9 fL (80.0-100.0); Mean Platelet Volume 9.8 fL (9.4-12.4); Monocytes # (auto) 0.57 K/uL (0.11-0.59); Monocytes % (auto) 6.3 %; Neutrophils # (auto) 5.74 K/uL (1.40-6.50); Neutrophils % (auto) 63.7 %; Platelet Count 323 K/uL (130-400); RDW Coefficient of Variation 13.6 % (11.5-14.5); RDW Standard Deviation 43.8 fL (36.4-46.3); White Blood Count 9.01 K/ul (4.8-10.8)
[2023-06-12 06:41] LABS: Albumin Globulin Ratio 1.8 (0.9-2); Albumin Level 4.1 gm/dl (3.4-5.0); BUN Creatinine Ratio 13.2 (10-20); Bilirubin,Total 1.4 mg/dl (0.2-1.0); Calcium 8.7 mg/dl (8.6-10.3); Creatinine Clr Calc Pharmacy 101.2 ml/min; Est GFR (African American) 113.3 ml/min; Est GFR (Non-African American) 97.8 ml/min; Globulin 2.3 gm/dl (2.5-4.0); Potassium 3.9 mmol/L (3.5-5.1); Total Protein 6.4 gm/dl (6.0-8.3)
[2023-06-12 06:47] LABS: INR 0.9 (0.9-1.1); Prothrombin Time 10.1 Seconds (9.0-12.0)
--- NOTE | 2023-06-12 07:03 | XRay Report ---
XR chest 1V portable HISTORY: Chest pain, nonspecific COMPARISON: None. FINDINGS: There are low lung volumes. No pneumothorax. No pleural effusions. The cardiac silhouette i s mildly enlarged. No focal lung consolidations to suggest a pneumonia. No evidence for pulmonary cynthia ma. No acute fractures. IMPRESSION: Mild cardiomegaly. Otherwise, no acute process within the chest. ACT 112: Negative or not required by law. Electronically signed by: Dashawn Geiger M.D. 06/12/2023 7:02 AM
--- NOTE | 2023-06-12 07:20 | XRay Report ---
KUB HISTORY: Acute epigastric abdominal pain epigastric pain COMPARISON: Ultrasound of same day FINDINGS: No acute process of the imaged lower chest. Nonobstructive bowel gas pattern. The renal sha dows are obscured by bowel gas. Moderate fecal retention. No renal calculi. No ureteral calculi. No pneumoperitoneum or pneumatosis. No fracture. IMPRESSION: Nonobstructive bowel gas pattern. ACT 112: Negative or not required by law. The above report was generated using voice recognition software. It may contain grammatical, syntax o r spelling errors. Electronically signed by: Juan F Smith M.D. 06/12/2023 7:19 AM
[2023-06-12] MEDS: CHOLECALCIFEROL 25 MCG (1000 UNITS) TAB PO SCH (07:54)
[2023-06-12] MEDS: CETIRIZINE HCL 10 MG TABLET PO SCH (07:54)
[2023-06-12] MEDS: PANTOprazole 40 MG in SYRINGE 0 ML IV SCH (07:54)
[2023-06-12] MEDS: MAGNESIUM OXIDE 400 MG TAB PO SCH (07:54)
--- NOTE | 2023-06-12 09:01 | Surgery Progress Note ---
Date of Service June 12, 2023 Assessment & Plan (1) Cholelithiasis: Plan: pt denies abd pain currently Denies n/v fever, chill, cp sob has been npo Consulted GI for elevation in LFTs Temp 99.9 this AM Continue IV antibiotics Will wait GI recommendation prior to proceeding with cholecystectomy (2) Elevated LFTs: Plan: Elevation this AM in T. Bili, AST, ALT , ALk. Phos. Consult for GI placed Admission and Anticipated Discharge Date Admission Date: June 12, 2023 Supervising Physician Co-Signing Physician Notes pnt s&e, labs and imaging reviewed, agree with above. Admitted with cholelithiasis, lft's bumped today. GI consulted, MRCP today. abd soft, ttp in epigastrium and RUQ. lft's elevated, wbc normal. If MRCP +, then ercp, if - and lft's downtrending tomorrow, then cholecystectomy tu or mon. Subjective pt denies abd pain currently No n/v fever, chill, cp sob has been npo Review of Systems Constitutional: no fever and no chills Ear, Nose, Mouth, Throat: no hearing loss Respiratory: no cough and no dyspnea Cardiovascular: no chest pain Gastrointestinal: no abdominal pain, no nausea and no vomiting Musculoskeletal: no muscle weakness Integumentary: no rash Neurologic: no confusion Physical Exam Physical Exam: awake alert oriented Constitutional: well developed, cooperative and comfortable; no acute distress ENMT: external ear and nose normal, oropharynx normal Respiratory: normal respiratory effort and able to speak in complete sentences; no respiratory distress Cardiovascular: Rate/Rhythm: regular rate Gastrointestinal (Abdomen): Percussion/Palpation: + abdomen tender, + guarding and abdomen soft Musculoskeletal: no cyanosis or clubbing, extremities motor strength 5/5 Skin: no jaundice Psychiatric: A+Ox3, euthymic affect Results & Data Vital Signs (Past 12 Hours) Vital Signs Temp Pulse Pulse Pulse Resp BP Pulse Ox 06/12/23 07:29 99.9 F H 71 16 138/78 96 06/12/23 03:20 162/82 H 06/12/23 01:45 06/12/23 01:45 06/12/23 01:45 97.9 F 70 16 188/95 H 98 06/12/23 00:00 69 20 94 06/11/23 23:15 70 06/11/23 23:00 68 18 95 06/11/23 22:31 89 19 179/95 H 97 O2 Del Method 06/12/23 07:29 Room Air 06/12/23 03:20 06/12/23 01:45 Room Air 06/12/23 01:45 Room Air 06/12/23 01:45 Room Air 06/12/23 00:00 Room Air 06/11/23 23:15 06/11/23 23:00 Room Air 06/11/23 22:31 Room Air Results Complete Blood Count Results: RBC 4.20 M/uL (4.20-5.40) 06/12/23 WBC 9.01 K/ul (4.8-10.8) 06/12/23 Hgb 12.4 g/dl (12.0-16.0) 06/12/23 Hct 36.9 % (37.0-47.0) L 06/12/23 Plt Count 323 K/uL (130-400) 06/12/23 Results CMP Results: Na 142 mmol/L (136-145) 06/12/23 K 3.9 mmol/L (3.5-5.1) 06/12/23 Cl 110 mmol/L (98-107) H 06/12/23 CO2 25 mmol/L (21-32) 06/12/23 Anion Gap 7 (3-11) 06/12/23 BUN 9 mg/dl (6-23) 06/12/23 Creatinine 0.68 mg/dl (0.6-1.2) 06/12/23 Estimated GFR ( Amer) 113.3 ml/min 06/12/23 Estimated GFR (Non-Af Amer) 97.8 ml/min 06/12/23 BUN/Creatinine Ratio 13.2 (10-20) 06/12/23 Glu 111 mg/dl (70-99(Fasting)) H 06/12/23 Ca 8.7 mg/dl (8.6-10.3) 06/12/23 Total Bilirubin 1.4 mg/dl (0.2-1.0) H 06/12/23 AST 343 U/L (13-39) H 06/12/23 ALT 217 U/L (7-52) H 06/12/23 Alkaline Phosphatase 144 U/L (34-104) H 06/12/23 TP 6.4 gm/dl (6.0-8.3) 06/12/23 Albumin 4.1 gm/dl (3.4-5.0) 06/12/23 Globulin 2.3 gm/dl (2.5-4.0) L 06/12/23 Albumin/Globulin Ratio 1.8 (0.9-2) 06/12/23 PG Care Time/CCT Total # of Minutes Spent Total Time Spent with Patient: Total time spent is greater than 50% in coordination of care (as documented) at patient's floor/unit and/or counseling patient: Coding Level of Care Code 43047 SUB INP/OBS CARE Diagnoses Cholelithiasis K80.20 Elevated LFTs R79.89
--- NOTE | 2023-06-12 10:03 | Gastrointestinal Consultation ---
Date of Consultation June 12, 2023 Assessment & Plan (1) Elevated LFTs: (2) Cholelithiasis: (3) Abdominal pain: Plan Suspect symptoms are related to a gallbladder etiology. I discussed case with Dr. Potter who advised on plan. - continue to monitor lfts. - set up MRCP to evaluate for any Choledocholithiasis given the rise in lfts. - surgery is following. Supervising Physician Co-Signing Physician Notes I saw the patient and agree with the findings as documented by MILAGROS Chance History of Present Illness Reason for Consultation: Doctor Request Requesting Physician: Megan MENARD Attending Physician: Elvin Lopez MD History of Present Illness Patient is a 57 year old female who presented to the ED on 06/11/23 with some midsternal chest pain and shortness of breath. she tells me that this came on after eating fried fish and had progressively gotten worse. She tells me that she has had similar issues before in the past but has always chalked it up to acid reflux. she tells me when this latest episode happened she had taken an additional 20mg of nexium but saw no benefit. she tells me that symptoms only seemed to progress after using the additional ppi dose which is why she sought out ED evaluation thinking it was heart related. She tells me that she has had frequent nausea in the past but no emesis. she tells me she does not have any c urrent abdominal pain and her chest discomfort has improved. she denies change in bowels, melena, or brbpr. no nsaid use. since she has been evaluated, there has been a rise in her LFTs. 06/12/23 cbc unremarkable except for hct 36.9. T bili 1.4, ast 343, alt 217, alk phos 144, lipase 18. US 06/11/23 cholelithiasis without acute cholecystitis. fatty liver. she tells me she did have an EGD several years ago at a hospital in [place]. Allergies Allergy/AdvReac Type Severity Reaction Status Date / Time adhesive Allergy Intermediate Rash Verified 06/11/23 21:58 metronidazole Allergy Intermediate RASH Verified 06/11/23 21:58 Penicillins Allergy Intermediate Rash Verified 06/11/23 21:58 ethinyl estradiol AdvReac Severe SEVERE Verified 02/04/24 21:58 [From Juan Jose (28)] GLAUCOMA norgestrel AdvReac Severe SEVERE Verified 06/11/23 21:58 [From Juan Jose (28)] GLAUCOMA chocolate flavor AdvReac Intermediate COLD SORES Verified 06/11/23 21:58 AROUND MOUTH erythromycin base AdvReac Intermediate GI SYMPTOMS Verified 06/11/23 21:58 montelukast AdvReac Intermediate ABD Verified 06/11/23 21:58 PAIN,BLOATING, CONSTIPATION FOOD DYES AdvReac Intermediate UNKNOWN Uncoded 06/11/23 21:58 PER [facility] Home Medications Medication Instructions Recorded Confirmed Type cetirizine 10 mg capsule 10 mg PO QAM 04/12/18 06/11/23 History cholecalciferol (vitamin D3) 50 2,000 units PO QAM 02/07/19 06/11/23 History mcg (2,000 unit) tablet esomeprazole magnesium 20 mg 20 mg PO QAM 01/30/20 06/11/23 History capsule,delayed release (Nexium) valacyclovir 500 mg tablet 500 mg PO BID PRN Cold Sores #30 04/18/22 06/11/23 Rx (Valtrex) tabs glucosamine sulfate 500 mg tablet 475 mg PO DAILY 08/24/22 06/11/23 History (Glucosamine) phenylephrine HCl 10 mg tablet 10 mg PO Q6H PRN Congestion 08/24/22 06/11/23 History lysine 500 mg tablet 500 mg PO 3XWK 06/11/23 06/11/23 History magnesium oxide 400 mg PO .3-4XWK 06/11/23 06/11/23 History ocjllmasscxv-xzevwgzp-hmwugs 1 tab PO 3XWK 06/11/23 06/11/23 History tablet (Multivitamin 50 Plus tablet) Patient History Medical History Obesity Endometriosis Fibromyalgia GERD (gastroesophageal reflux disease) Temporomandibular joint disorder Migraine Asthma A CHILD Anxiety Surgical History History of colonoscopy History of cataract surgery Bilateral History of anesthesia reaction VERY SLOW TO WAKE UP History of breast biopsy History of total abdominal hysterectomy and bilateral salpingo-oophorectomy History of esophagogastroduodenoscopy (EGD) History of tooth extraction History of tonsillectomy History of adenoidectomy History of cardiac cath 2015 R/T VASOVAGAL EVENT (NO INTERVENTION) Family History Mother Hypothyroid Sister Hypothyroid Grandmother (Maternal) Diabetes Other No family history of adverse response to anesthesia Denies family history of Ovarian cancer Breast cancer Colorectal cancer Social History Smoking Status: Never smoker Second Hand Exposure: No; Do You Dip or Chew Tobacco: No; Tobacco Cessation Education Requested by Patient: No Hx Alcohol Use: Yes Alcohol type: hard liquor Hx Substance Use: No Preferred Language: Latvian Communication Ability: Effective Competency Evaluated Nurse Aide Required: No Beliefs That Will Affect Care: None Current Living Situation: Parent Current Living Situation Comment: Lives with Mother. Other Information That Helps Us Care for You: No Feels Safe at Home: Yes Safety Concerns: Feels Safe At This Time Assistive Devices: Glasses and Hospital Bed Review of Systems Review of Systems: All systems reviewed & are unremarkable except as noted in HPI & below Physical Exam Constitutional: WD/WN, vitals as above Respiratory: normal respiratory effort, lungs clear to auscultation Cardiovascular: RRR, no murmur, no edema Gastrointestinal (Abdomen): mild RUQ tenderness, no guarding, soft, normal bowel sounds. Skin: no rashes, warm and dry Psychiatric: Orientation: alert and oriented x 3 Affect: euthymic affect Results & Data Vital Signs (Past 12 Hours) Vital Signs Temp Pulse Pulse Pulse Resp BP Pulse Ox 06/12/23 07:29 99.9 F H 71 16 138/78 96 06/12/23 03:20 162/82 H 06/12/23 01:45 06/12/23 01:45 06/12/23 01:45 97.9 F 70 16 188/95 H 98 06/12/23 00:00 69 20 94 06/11/23 23:15 70 06/11/23 23:00 68 18 95 06/11/23 22:31 89 19 179/95 H 97 O2 Del Method 06/12/23 07:29 Room Air 06/12/23 03:20 06/12/23 01:45 Room Air 06/12/23 01:45 Room Air 06/12/23 01:45 Room Air 06/12/23 00:00 Room Air 06/11/23 23:15 06/11/23 23:00 Room Air 06/11/23 22:31 Room Air PG Care Time/CCT Total # of Minutes Spent Total Time Spent with Patient: Total time spent is greater than 50% in coordination of care (as documented) at patient's floor/unit and/or counseling patient: Coding Level of Care Code 83379 OFFICE CONSULT LVL M Diagnoses Elevated LFTs R79.89 Cholelithiasis K80.20 Abdominal pain R10.9 Time Spent (min) 45
--- NOTE | 2023-06-12 12:15 | Electrocardiogram Report ---
Test Reason : Blood Pressure : / mmHG Vent. Rate : 070 BPM Atrial Rate : 070 BPM P-R Int : 158 ms QRS Dur : 088 ms QT Int : 436 ms P-R-T Axes : 053 008 060 degrees QTc Int : 470 ms Poor data quality, interpretation may be adversely affected Normal sinus rhythm Normal ECG When compared with ECG of 28-JAN-2020 12:03, No significant change Confirmed by Enoch Rivers ([id number]) on 06/12/2023 12:14:53 PM Referred By: REFERRED SELF Confirmed By:Enoch Rivers
--- NOTE | 2023-06-12 12:16 | Electrocardiogram Report ---
Test Reason : Blood Pressure : / mmHG Vent. Rate : 069 BPM Atrial Rate : 069 BPM P-R Int : 162 ms QRS Dur : 094 ms QT Int : 428 ms P-R-T Axes : 063 042 -21 degrees QTc Int : 458 ms Normal sinus rhythm Nondiagnostic inferior Q waves Abnormal ECG When compared with ECG of 11-JUN-2023 19:06, Inferior Q waves now present Confirmed by Enoch Rivers ([id number]) on 06/12/2023 12:16:03 PM Referred By: REFERRED SELF Confirmed By:Enoch Rivers
--- NOTE | 2023-06-12 17:59 | Hospitalist Progress Note ---
Date of Service June 12, 2023 Assessment & Plan (1) Abdominal pain: Plan: 57-year-old female with past medical significant for allergic rhinitis, esophagitis, fibromyalgia, migraine, history of acute transverse myelitis, history of panic attack presents with epigastric abdominal pain. Patient states pain started after lunch and she thought it was her GERD but from 5:30 PM the pain was severe in nature which prompted her come to the ER. Pain is radiating to the sides of the upper abdomen. In the ER she was nauseous. Having chest pain when taking deep breath. When the pain is severe patient is feeling short of breath. Denies any fevers. No headache. No cough. Normal bowel and bladder movements. Symptomatic cholelithiasis Biliary colic Rule out cholecystitis --Mild transaminitis --Gallbladder ultrasound:Small echogenic foci within the right renal parenchyma could represent a angiomyolipoma or renal calculus. Cholelithiasis without sonographic evidence of acute cholecystitis. --MRCP pending -- Appreciate surgery, GI input --Empirically on cefoxitin --Unable to give Flagyl due to allergy history -- Pain control --N.p.o. for now Continue IV fluids Monitor LFTs H/O Esophagitis Continue IV Protonix while n.p.o. Abnormal ECG Troponin negative Echo pending DVT Px SCDs for now CODE STATUS Full code Admission and Anticipated Discharge Date Admission Date: June 12, 2023 Subjective Patient is seen and examined at bedside Abdominal pain much improved Denies any nausea, vomiting, chest pain, dyspnea No other complaints Review of Systems Review of Systems: All systems reviewed & are unremarkable except as noted in Subjective Physical Exam Physical Exam: Physical Exam: Vitals signs as noted above General Appearance:Obese, no apparent distress Head: normocephalic, Atraumatic Eyes: normal inspection, EOMI Neck: supple, Trachea midline Respiratory/Chest: Normal breath sounds, CTA, No accessory muscle use Cardiovascular: S1, S2, No murmur Abdomen/GI:Soft, epigastric tender, Bowel sounds present Extremities/Musculoskeletal:normal inspection, no edema Neurologic/Psych:AAOX3, grossly no focal neurological deficits Skin: normal color, warm Results & Data Results & Data Vital Signs (Past 12 Hours) Vital Signs Temp Pulse Pulse Resp BP Pulse Ox O2 Del Method 06/12/23 14:52 36.6 C 68 16 145/75 H 94 Room Air 06/12/23 11:34 36.8 C 69 16 148/78 H 96 Room Air 06/12/23 07:29 37.7 C H 71 16 138/78 96 Room Air Laboratory Results Short CBC 06/11/23 06/12/23 Range/Units 19:32 05:59 WBC 15.40 H 9.01 (4.8-10.8) K/ul Hgb 13.9 12.4 (12.0-16.0) g/dl Hct 40.6 36.9 L (37.0-47.0) % Plt Count 340 323 (130-400) K/uL BMP 06/11/23 06/12/23 19:32 05:59 Sodium 140 142 Potassium 3.8 3.9 Chloride 106 110 H Carbon Dioxide 24 25 BUN 12 9 Creatinine 0.67 0.68 Glucose 116 H 111 H Calcium 9.4 8.7 Liver Function 06/11/23 06/12/23 Range/Units 19:32 05:59 Total Bilirubin 0.7 1.4 H D (0.2-1.0) mg/dl AST 76 H 343 H (13-39) U/L ALT 59 H 217 H (7-52) U/L Alkaline Phosphatase 121 H 144 H (34-104) U/L Albumin 4.4 4.1 (3.4-5.0) gm/dl Urine 06/11/23 Range/Units 22:42 Urine Color Yellow Urine Appearance Clear (Clear) Urine pH 6.5 (4.5-7.5) Ur Specific [place] 1.015 (1.000-1.030) Urine Protein Negative (Negative) Urine Glucose (UA) Negative (Negative)
[2023-06-13 07:43] LABS: Hematocrit (blood only) 37.3 % (37.0-47.0); Hemoglobin 12.4 g/dl (12.0-16.0); Mean Corpuscular Hemoglobin 29.7 pg (25.0-34.0); Mean Corpuscular Hgb Conc 33.2 g/dL (32.0-36.0); Mean Corpuscular Volume 89.2 fL (80.0-100.0); Mean Platelet Volume 9.7 fL (9.4-12.4); Platelet Count 309 K/uL (130-400); RDW Coefficient of Variation 13.9 % (11.5-14.5); Red Blood Count 4.18 M/uL (4.20-5.40); White Blood Count 6.34 K/ul (4.8-10.8)
--- NOTE | 2023-06-13 07:51 | Magnetic Resonance Report ---
MRCP CLINICAL HISTORY: elevated LFTs TECHNIQUE: Utilizing a 1.5 Vanessa magnet and dedicated coil, multiplanar, multiecho imaging of the upp er abdomen was performed utilizing heavily T2 weighted pulsing sequences without IV contrast. COMPARISON STUDY: Right upper quadrant ultrasound and KUB June 11, 2023. FINDINGS: There is no intra or extrahepatic biliary ductal dilatation. Common bile duct measures 5 mm in caliber. No common bile duct calculi are present. There is no pancreatic ductal dilatation. Numer ous gallstones within the gallbladder are present. Gallbladder is not distended. There is no gallblad yo wall thickening or pericholecystic fluid. Unenhanced images of the spleen, adrenal glands, kidney s and pancreas are unremarkable. There is no hydronephrosis. No abdominal lymphadenopathy or ascites. The liver is mildly enlarged, measuring 20.1 cm in maximal sagittal dimension. Suspected hepatic josie atosis is better depicted on ultrasound June 11, 2023. IMPRESSION: 1. Cholelithiasis. No evidence for acute cholecystitis. 2. No biliary ductal dilatation. No common bile duct calculi. 3. Suspected hepatic steatosis, better depicted on ultrasound. Mild hepatomegaly. ACT 112: Negative or not required by law. Electronically signed by: Sanjeev Ely M.D. 06/13/2023 7:50 AM
[2023-06-13 07:56] LABS: Albumin Globulin Ratio 1.5 (0.9-2); BUN Creatinine Ratio 8.2 (10-20); Bilirubin Direct 0.2 mg/dl (0-0.2); Bilirubin,Total 0.7 mg/dl (0.2-1.0); Calcium 8.7 mg/dl (8.6-10.3); Creatinine Clr Calc Pharmacy 112.8 ml/min; Est GFR (African American) 117.5 ml/min; Est GFR (Non-African American) 101.3 ml/min; Globulin 2.6 gm/dl (2.5-4.0); Potassium 3.6 mmol/L (3.5-5.1); Total Protein 6.6 gm/dl (6.0-8.3)
[2023-06-13] MEDS ORDERED: LACTATED RINGER'S 1,000 ML IV SCH (10:00)
[2023-06-13] MEDS: LACTATED RINGER'S 1,000 ML IV SCH (10:04)
--- NOTE | 2023-06-13 10:07 | Communication Note ---
Date of Service: June 13, 2023 Patient feeling somewhat better today. still some epigastric discomfort. 06/13/23 t bili 0.7, ast 186, alt 293, alk phos 166. MRCP done yesterday shown cholelithiasis, no biliary dilation and no CBD calculi. hepatic steatosis. - patient is planned for cholecystectomy today. suspect symptoms were related to gallbladder. -advised diet and exercise for fatty liver.
[2023-06-13] MEDS ORDERED: PROPOFOL IV EMULSION 10 MG/ML 20 ML VIAL IV ONE (10:11)
[2023-06-13] MEDS ORDERED: fentaNYL citrate PF 100 MCG/2 ML VIAL ONE ×2 (10:11→11:49)
[2023-06-13] MEDS ORDERED: LIDOCAINE 2% 2 ML VIAL/AMP(20MG/ML) INFIL ONE (10:11)
[2023-06-13] MEDS ORDERED: ROCURONIUM BROMIDE 10 MG/ML 5 ML VIAL IV ONE (10:11)
[2023-06-13] MEDS ORDERED: LARYING-O-JET KIT (LTA) ONE (10:11)
[2023-06-13] MEDS ORDERED: MIDAZOLAM HCL 1 MG/ML 2ML VIAL ONE (10:11)
[2023-06-13] MEDS ORDERED: ePHEDrine sulfate 50 MG/ML AMP IV PRN (11:03)
[2023-06-13] MEDS ORDERED: HYDROmorphone INJ 2 MG/ML SYR/VIAL IV PRN (11:03)
[2023-06-13] MEDS ORDERED: ATROPINE SULFATE 0.1 MG/ML 10ML SYR IV PRN (11:03)
--- NOTE | 2023-06-13 11:03 | Anesthesiology Consultation ---
Date of Service June 13, 2023 Assessment & Plan ASA ASA3 Proposed Anesthesia Anesthesia Type: General Risk / Benefits Reviewed With: PT / POA / Parent / Guardian, Accepts Plan and Informed Consent Obtained History Surgery Operation Date: 06/13/23 10:30 Proposed Procedures p Laparoscopic Cholecystectomy Possible Open - Can Chambers DO, FACS Height/Weight Height: 5 ft 3 in Weight: 94.9 kg Allergies Allergy/AdvReac Type Severity Reaction Status Date / Time adhesive Allergy Intermediate Rash Verified 06/11/23 21:58 metronidazole Allergy Intermediate RASH Verified 06/11/23 21:58 Penicillins Allergy Intermediate Rash Verified 06/11/23 21:58 ethinyl estradiol AdvReac Severe SEVERE Verified 06/11/23 21:58 [From Juan Jose ()] GLAUCOMA norgestrel AdvReac Severe SEVERE Verified 06/11/23 21:58 [From Juan Jose ()] GLAUCOMA chocolate flavor AdvReac Intermediate COLD SORES Verified 06/11/23 21:58 AROUND MOUTH erythromycin base AdvReac Intermediate GI SYMPTOMS Verified 06/11/23 21:58 montelukast AdvReac Intermediate ABD Verified 06/11/23 21:58 PAIN,BLOATING, CONSTIPATION FOOD DYES AdvReac Intermediate UNKNOWN Uncoded 06/11/23 21:58 PER [facility] Medications Home Medications Medication Instructions Recorded Confirmed Last Taken cetirizine 10 mg capsule 10 mg PO QAM 04/12/18 06/11/23 06/11/23 cholecalciferol (vitamin D3) 50 2,000 units PO QAM 02/07/19 06/11/23 06/11/23 mcg (2,000 unit) tablet esomeprazole magnesium 20 mg 20 mg PO QAM 01/30/20 06/11/23 06/11/23 capsule,delayed release (Nexium) TOOK 2 DOSES TODAY valacyclovir 500 mg tablet 500 mg PO BID PRN Cold Sores #30 04/18/22 06/11/23 Unknown (Valtrex) tabs glucosamine sulfate 500 mg tablet 475 mg PO DAILY 08/24/22 06/11/23 06/10/23 (Glucosamine) phenylephrine HCl 10 mg tablet 10 mg PO Q6H PRN Congestion 08/24/22 06/11/23 06/11/23 08:00 lysine 500 mg tablet 500 mg PO 3XWK 06/11/23 06/11/23 Unknown magnesium oxide 400 mg PO .3-4XWK 06/11/23 06/11/23 Unknown rrdpsamhcknf-pijnoixc-beturt 1 tab PO 3XWK 06/11/23 06/11/23 Unknown tablet (Multivitamin 50 Plus tablet) Active Medications Generic Name Dose Route Start Last Admin Trade Name [place]q PRN Reason Stop Dose Admin Cetirizine HCl 10 mg 06/12/23 09:00 06/13/23 08:35 Cetirizine Hcl 10 Mg Tablet PO 07/12/23 08:59 10 mg QAM DONALD Administration Dextrose/Sodium Chloride 1,000 mls @ 125 mls/hr 06/12/23 01:50 06/13/23 10:00 D5w And Nss IV 07/12/23 01:49 Not Given .Q8H DONALD Pantoprazole Sodium 40 mg/ 10 mls @ 5 mls/min 06/12/23 09:00 06/13/23 08:35 Syringe IV 07/12/23 08:59 5 mls/min BID DONALD Administration Cefoxitin Sodium 2,000 mg/ 50 mls @ 100 mls/hr 06/12/23 06:00 06/13/23 07:58 Dextrose IV 06/22/23 05:59 Infused Q6H DONALD Infusion Protocol Lactated Ringer's 1,000 mls @ 0 mls/hr 06/13/23 10:02 06/13/23 10:04 Lr IV 07/13/23 10:01 15 mls/hr .Q0M DONALD Administration KVO Magnesium Oxide 400 mg 06/12/23 09:00 06/12/23 07:54 Magnesium Oxide 400 Mg Tab PO 07/12/23 08:59 400 mg [id number] DONALD Administration Vitamin D 50 mcg 06/12/23 09:00 06/13/23 08:35 Cholecalciferol 25 Mcg (1000 Units) Tab PO 07/12/23 08:59 50 mcg QAM DONALD Administration NPO Date Last Intake of Fluids: 06/12/23 Time Last Intake of Fluids: 23:00 Last Intake of Fluids Comment: 0830 sip water for med Date Last Intake of Solids: 06/12/23 Time Last Intake of Solids: 23:00 Past Medical History Medical History Obesity Endometriosis Fibromyalgia GERD (gastroesophageal reflux disease) Temporomandibular joint disorder Migraine Asthma A CHILD Anxiety Exercise / Class Metabolic Activity II 4-5 Yardwork/Stairs/Walk up hill Past Family History Family History Mother Hypothyroid Sister Hypothyroid Grandmother (Maternal) Diabetes Other No family history of adverse response to anesthesia Denies family history of Ovarian cancer Breast cancer Colorectal cancer Past Surgical History Surgical History History of colonoscopy History of cataract surgery Bilateral History of anesthesia reaction VERY SLOW TO WAKE UP History of breast biopsy History of total abdominal hysterectomy and bilateral salpingo-oophorectomy History of esophagogastroduodenoscopy (EGD) History of tooth extraction History of tonsillectomy History of adenoidectomy History of cardiac cath 2014 R/T VASOVAGAL EVENT (NO INTERVENTION) Past Anesthesia History No Hx of Anesthesia Complications and No Family Hx of Anesthesia Complications History of PONV No Hx of PONV and No Hx of Motion Sickness Social History Smoking Status: Never smoker Do You Dip or Chew Tobacco: No Hx Alcohol Use: Yes Alcohol type: hard liquor alcohol intake frequency: a few times a week Hx Substance Use: No substance use type: does not use Review of Systems denies fever/cough/ colds/ chest pain/ SOB/ FE denies FE Physical Exam Vital Signs Last Vital Signs Temp 36.6 C 06/13/23 09:47 Pulse 77 06/13/23 09:47 Resp 18 06/13/23 09:47 BP 130/92 06/13/23 09:47 Pulse Ox 99 06/13/23 09:47 O2 Del Method Room Air 06/13/23 09:47 ENMT Mouth: no TMJ abnormality and no dentition abnormality Thyromental Distance: > or= 3.5 Finger Breadths Mallampati Class: II Neck neck extension not limited Respiratory normal respiratory effort; no respiratory distress Auscultation: lungs clear to auscultation bilaterally Cardiovascular Rate/Rhythm: regular rate and regular rhythm Neurologic moves all extremities Psychiatric Orientation: alert and oriented x 3 Testing Laboratory Results 06/13/23 07:20 06/13/23 07:20 PT 10.1 Seconds (9.0-12.0) 02/05/24 05:59 INR 0.9 (0.9-1.1) 06/12/23 05:59 Urine Color Yellow 06/11/23 22:42 Urine Appearance Clear (Clear) 06/11/23 22:42 Urine pH 6.5 (4.5-7.5) 06/11/23 22:42 Ur Specific [place] 1.015 (1.000-1.030) 06/11/23 22:42 Urine Protein Negative (Negative) 06/11/23 22:42 Urine Glucose (UA) Negative (Negative) 06/11/23 22:42 Urine Ketones Negative (Negative) 06/11/23 22:42 Urine Nitrite Negative (Negative) 06/11/23 22:42 Ur Leukocyte Esterase Negative (Negative) 06/11/23 22:42
--- NOTE | 2023-06-13 11:12 | Surgery Progress Note ---
Date of Service June 13, 2023 Assessment & Plan (1) Cholelithiasis: Plan: Symptomatic cholelithiasis w/ cholecystitis, lft downtrending, mrcp neg plan for laparoscopic cholecystectomy with possible cholangiogram, possible robotic risks discussed to include but not limited to bleeding, infection, retained stone, bile leak, open surgery, damage to surrounding structures including bile duct, need for future or more extensive surgery, failure to treat symptoms, and risks of anesthesia. Admission and Anticipated Discharge Date Admission Date: June 12, 2023 Subjective MRCP negative yesterday, pain somewhat improved Physical Exam Constitutional: WD/WN, vitals as above Respiratory: normal respiratory effort, lungs clear to auscultation Cardiovascular: RRR, no murmur, no edema Gastrointestinal (Abdomen): normal bowel sounds, soft, nontender, no hepatosplenomegaly Results & Data Vital Signs (Past 12 Hours) Vital Signs Temp Pulse Resp BP Pulse Ox O2 Del Method 06/13/23 09:47 36.6 C 77 18 130/92 99 Room Air 06/13/23 07:33 36.5 C 71 16 130/90 94 Room Air Laboratory Results Laboratory Results - last 24 hr 06/13/23 07:20 WBC 6.34 RBC 4.18 L Hgb 12.4 Hct 37.3 MCV 89.2 MCH 29.7 MCHC 33.2 RDW Std Deviation 45.0 RDW Coeff of Cj 13.9 Plt Count 309 MPV 9.7 Sodium 143 Potassium 3.6 Chloride 111 H Carbon Dioxide 25 Anion Gap 7 BUN 5 L Creatinine 0.61 Est Cr Clr Drug Dosing 112.8 Est GFR ( Amer) 117.5 Est GFR (Non-Af Amer) 101.3 BUN/Creatinine Ratio 8.2 L Glucose 108 H Calcium 8.7 Magnesium 2.0 Total Bilirubin 0.7 D Direct Bilirubin 0.2 AST 186 H ALT 293 H Alkaline Phosphatase 166 H Total Protein 6.6 Albumin 4.0 Globulin 2.6 Albumin/Globulin Ratio 1.5 PG Care Time/CCT Total # of Minutes Spent Total Time Spent with Patient: Total time spent is greater than 50% in coordination of care (as documented) at patient's floor/unit and/or counseling patient: Coding Level of Care Code 01088 SUB INP/OBS CARE 2/35MIN Diagnoses Calculus of gallbladder with acute on chronic cholecystitis without obstruction K80.12 Cholelithiasis location: gallbladder Cholecystitis presence: with cholecystitis Cholecystitis acuity: acute and chronic Biliary obstruction: without biliary obstruction (1) Cholelithiasis Cholelithiasis location: gallbladder Cholecystitis presence: with cholecyst itis Cholecystitis acuity: acute and chronic Biliary obstruction: without biliary obstruction Qualified Code(s): K80.12 - Calculus of gallbladder with acute and chronic cholecystitis without obstruction
[2023-06-13] MEDS ORDERED: DEXAMETHASONE SOD INJ 4 MG/ML VIAL ONE (11:53)
[2023-06-13] MEDS ORDERED: ONDANSETRON INJ 2 MG/ML 2 ML VIAL ONE (11:53)
[2023-06-13] MEDS ORDERED: LABETALOL HCL IV 5 MG/ML 20ML IV ONE (12:06)
[2023-06-13] MEDS ORDERED: SUGAMMADEX SODIUM 200 MG/2 ML VIAL IV ONE (12:26)
[2023-06-13] MEDS: BUPIVACAINE 0.5 % 5 MG/1 ML MPF 30ML VIAL ONE (12:28)
--- NOTE | 2023-06-13 12:40 | Operative Report ---
PG Post Operative Report Pre & Post Diagnosis Operation Date: 06/13/23 10:30 Pre-Op Diagnosis: Symptomatic cholelithiasis w/ cholecystitis Post-Op Diagnosis: Symptomatic cholelithiasis w/ cholecystitis I identified the patient and participated in the time-out.: Yes Procedure Operation Date: 06/13/23 10:30 Actual Procedures p Laparoscopic Cholecystectomy (Not Applicable) - Can Chambers DO, LUIZ Surgeon Can Chambers DO, LUIZ Charting Clerk Megan Tobias Estimated Blood Loss 10 Findings Consistent with Post-Op Diagnosis Acute on chronic moderate cholecystitis, fatty liver, critical view of safety obtained, cystic duct and artery doubly clipped and divided. Additional posterior arterial branch clipped. Specimens Gallbladder Anesthesia Type General Complications none Disposition Accompanied Patient To Recovery: No Disposition: Recovery Room Indications 57-year-old female with signs symptoms of cholelithiasis with cholecystitis. Initially had a bump in her LFTs but MRCP showed no evidence of choledocholithiasis and liver enzymes downtrending this morning. Plan for laparoscopic cholecystectomy with possible cholangiogram. The risks of the procedure were discussed, all questions were answered, and the patient agreed to proceed with surgery as planned. Description of Procedure The patient was properly identified, consented, and taken to the operating room where she was placed in the supine position. General endotracheal anesthesia was induced. SCDs and a safety belt were placed. Preoperative antibiotics were administered. The patient's abdomen was prepped and draped in the standard sterile fashion. A surgical timeout was performed and all parties were in agreement that this was the correct patient and procedure to be performed and we continued as planned. An incision was made superior and to the left of the umbilicus overlying the rectus muscle and the Veress needle was inserted. Saline drop test confirmed entry into the peritoneum. The abdomen was insufflated with carbon dioxide which the patient tolerated without incident. The abdomen was then entered using the Optiview technique and a 5 mm trocar. The laparoscope was inserted and no damage from initial trocar or Veress needle placement was noted, no gross abnormalities were noted within the 4 quadrants of the abdomen. An 11 mm port was placed in the subxiphoid position and two 5 mm ports were then placed in the right subcostal position. The patient was placed in reverse Trendelenburg position and rotated towards the left. The gallbladder had moderate acute on chronic cholecystitis. The dome of the gallbladder was retracted towards the left upper quadrant and the infundibulum was retracted toward the right lower quadrant revealing Calot's triangle. Retraction was limited due to fatty liver. Peritoneal attachments were taken down with electrocautery and blunt dissection. The cystic duct and artery were circumferentially dissected. A window of safety was obtained showing the cystic duct entering the gallbladder with no aberrant structures noted. The cystic duct and artery were doubly clipped and divided. The gallbladder was then lifted off the gallbladder fossa with electrocautery. A small posterior arterial branch was identified and was bleeding, this was controlled with a clip. There was some spillage of stone and bile during the case, these were retrieved. The gallbladder was placed in an Endo Catch bag and removed through the subxiphoid port site. The right upper quadrant was irrigated and hemostasis was found to be good. 5 mm trochars were removed under direct visualization and the abdomen was allowed to collapse. The subxiphoid port site fascia was closed with 0 Vicryl suture utilizing the Shahriar-Lesley device prior to removal of the port. The wound was irrigated, and the skin of all ports was closed with 4-0 Monocryl subcuticular sutures. Dermabond was placed over the wounds. The patient was extubated in the operating room and taken to the PACU where she recovered without apparent incident. All sponge, instrument and needle counts were correct at the conclusion of the procedure. The patient tolerated the procedure well. The nurse practitioner was present and scrubbed for the entirety of the case and was essential in positioning the patient, prepping and draping, retraction and exposure, driving the laparoscope, removal of the gallbladder, closure the incisions, and placement of the dressings. I attest to the content of the Intraoperative Record and any orders documented therein. Any exceptions are noted below.
[2023-06-13] MEDS ORDERED: PHENYLEPHRINE 100MCG/ML 10ML SYR IV ONE (12:52)
[2023-06-13] MEDS: ONDANSETRON INJ 2 MG/ML 2 ML VIAL IV PRN (12:58)
[2023-06-13] MEDS: fentaNYL citrate PF 100 MCG/2 ML VIAL IV PRN (12:59)
[2023-06-13] MEDS ORDERED: oxyCODONE HCL IR 5 MG TAB (IMMEDIATE RELEASE) PO PRN (13:50)
[2023-06-13] MEDS ORDERED: MoRPHine SULFATE 4 MG/ML 1 ML CARP\\VIAL IV PRN (13:50)
[2023-06-13] MEDS ORDERED: MoRPHine SULFATE 2 MG/ML CARP IV PRN (13:50)
[2023-06-13] MEDS ORDERED: ACETAMINOPHEN 1,000 MG/100 ML VIAL IV PRN (13:50)
--- NOTE | 2023-06-13 14:14 | Anesthesiology Progress Note ---
Date of Service June 13, 2023 Anesthesia Post Procedure Vital Signs Vital Signs: Temp Pulse Pulse Resp BP Pulse Ox O2 Del Method 06/13/23 13:35 36.5 C 06/13/23 13:25 66 15 154/89 H 94 Nasal Cannula 06/13/23 13:15 68 15 154/92 H 93 Nasal Cannula 06/13/23 13:05 63 16 137/83 93 Oxymask 06/13/23 12:55 60 16 149/93 H 93 Oxymask 06/13/23 12:47 36.7 C 61 16 149/90 H 93 Oxymask 06/13/23 09:47 36.6 C 77 18 130/92 99 Room Air 06/13/23 07:33 36.5 C 71 16 130/90 94 Room Air 06/12/23 21:20 150/90 H 06/12/23 20:09 36.4 C L 64 16 100 Room Air 06/12/23 14:52 36.6 C 68 16 145/75 H 94 Room Air O2 Flow Rate 06/13/23 13:35 06/13/23 13:25 4 06/13/23 13:15 4 06/13/23 13:05 5 06/13/23 12:55 5 06/13/23 12:47 5 06/13/23 09:47 06/13/23 07:33 06/12/23 21:20 06/12/23 20:09 06/12/23 14:52 Pain Intensity Bilateral Upper Abdomen: Pain Intensity: 4 Transfer of Care Handoff Completed per policy Notes Mental Status: alert / awake / arousable and participated in evaluation Patient Amnestic to Procedure: Yes Nausea / Vomiting: adequately controlled Pain: adequately controlled Airway Patency, RR, SpO2: stable & adequate BP & HR: stable & adequate Hydration State: stable & adequate Anesthetic Complications: no major complications apparent and Pt Satisfied with anesthetic care
[2023-06-13] MEDS: LACTATED RINGER'S 1,000 ML IV ONE (15:16)
[2023-06-13] MEDS: oxyCODONE HCL IR 5 MG TAB (IMMEDIATE RELEASE) PO PRN (16:16)
[2023-06-13] MEDS: hydrALAZINE 10 MG TAB PO PRN (16:25)
--- NOTE | 2023-06-13 18:09 | Hospitalist Progress Note ---
Date of Service June 13, 2023 Assessment & Plan (1) Abdominal pain: Plan: 57-year-old female with past medical significant for allergic rhinitis, esophagitis, fibromyalgia, migraine, history of acute transverse myelitis, history of panic attack presents with epigastric abdominal pain. Patient states pain started after lunch and she thought it was her GERD but from 5:30 PM the pain was severe in nature which prompted her come to the ER. Pain is radiating to the sides of the upper abdomen. In the ER she was nauseous. Having chest pain when taking deep breath. When the pain is severe patient is feeling short of breath. Denies any fevers. No headache. No cough. Normal bowel and bladder movements. Symptomatic cholelithiasis Biliary colic/acute on chronic cholecystitis--POA Hepatic steatosis --Mild transaminitis --Gallbladder ultrasound:Small echogenic foci within the right renal parenchyma could represent a angiomyolipoma or renal calculus. Cholelithiasis without sonographic evidence of acute cholecystitis. --MRCP: Cholelithiasis. No evidence for acute cholecystitis. No biliary ductal dilatation. No common bile duct calculi. Suspected hepatic steatosis, better depicted on ultrasound. Mild hepatomegaly. --S/P laparoscopic cholecystectomy on 06/13/2023 by -- Appreciate surgery, GI input --Empirically on cefoxitin --Unable to give Flagyl due to allergy history -- Pain control Received IV fluids Monitor LFTs Clear liquid diet today H/O Esophagitis Continue IV Protonix --transition to p.o. as able Hypertensive urgency Started on losartan Hydralazine as needed Monitor BP Abnormal ECG Troponin negative ECHO: Left ventricle systolic function is normal. EF 60 to 65% with mild concentric LVH. Left ventricle wall motion is normal. No significant valvular pathology. DVT Px SCDs for now Re: Surgery CODE STATUS Full code Admission and Anticipated Discharge Date Admission Date: June 12, 2023 Subjective Patient is seen and examined at bedside Reports abdominal pressure postsurgery Tolerating liquid diet Noted elevated BP postsurgery Denies any chest pain, dyspnea, nausea, vomiting Family at bedside Review of Systems Review of Systems: All systems reviewed & are unremarkable except as noted in Subjective Physical Exam Physical Exam: Physical Exam: Vitals signs as noted above General Appearance:Obese, no apparent distress Head: normocephalic, Atraumatic Eyes: normal inspection, EOMI Neck: supple, Trachea midline Respiratory/Chest: Normal breath sounds, CTA, No accessory muscle use Cardiovascular: S1, S2, No murmur Abdomen/GI:Soft, mild tender, + surgical site in dressing, bowel sounds present Extremities/Musculoskeletal:normal inspection, no edema Neurologic/Psych:AAOX3, grossly no focal neurological deficits Skin: normal color, warm Results & Data Results & Data Vital Signs (Past 12 Hours) Vital Signs Temp Pulse Pulse Resp BP Pulse Ox O2 Del Method 06/13/23 17:00 179/109 H 06/13/23 15:56 36.6 C 74 16 183/107 H 99 Nasal Cannula 06/13/23 14:36 64 16 178/102 H 96 Nasal Cannula 06/13/23 14:15 66 16 162/97 H 97 Nasal Cannula 06/13/23 13:35 36.5 C 06/13/23 13:25 66 15 154/89 H 94 Nasal Cannula 06/13/23 13:15 68 15 154/92 H 93 Nasal Cannula 06/13/23 13:05 63 16 137/83 93 Oxymask 06/13/23 12:55 60 16 149/93 H 93 Oxymask 06/13/23 12:47 36.7 C 61 16 149/90 H 93 Oxymask 06/13/23 09:47 36.6 C 77 18 130/92 99 Room Air 06/13/23 07:33 36.5 C 71 16 130/90 94 Room Air O2 Flow Rate 06/13/23 17:00 06/13/23 15:56 3 06/13/23 14:36 3 06/13/23 14:15 2 06/13/23 13:35 06/13/23 13:25 4 06/13/23 13:15 4 06/13/23 13:05 5 06/13/23 12:55 5 06/13/23 12:47 5 06/13/23 09:47 06/13/23 07:33 Laboratory Results Short CBC 06/13/23 Range/Units 07:20 WBC 6.34 (4.8-10.8) K/ul Hgb 12.4 (12.0-16.0) g/dl Hct 37.3 (37.0-47.0) % Plt Count 309 (130-400) K/uL BMP 06/13/23 07:20 Sodium 143 Potassium 3.6 Chloride 111 H Carbon Dioxide 25 BUN 5 L Creatinine 0.61 Glucose 108 H Calcium 8.7 Liver Function 06/13/23 Range/Units 07:20 Total Bilirubin 0.7 D (0.2-1.0) mg/dl Direct Bilirubin 0.2 (0-0.2) mg/dl AST 186 H (13-39) U/L ALT 293 H (7-52) U/L Alkaline Phosphatase 166 H (34-104) U/L Albumin 4.0 (3.4-5.0) gm/dl
[2023-06-13] MEDS: LOSARTAN POTASSIUM 50 MG TAB PO SCH (18:36)
[2023-06-14 04:05] VITALS: RESP 16
[2023-06-14 07:07] VITALS: TEMP 98.2
[2023-06-14 07:30] LABS: Hematocrit (blood only) 37.9 % (37.0-47.0); Hemoglobin 12.6 g/dl (12.0-16.0); Mean Corpuscular Hemoglobin 29.6 pg (25.0-34.0); Mean Corpuscular Hgb Conc 33.2 g/dL (32.0-36.0); Mean Corpuscular Volume 89.2 fL (80.0-100.0); Mean Platelet Volume 10.3 fL (9.4-12.4); Platelet Count 307 K/uL (130-400); RDW Standard Deviation 45.1 fL (36.4-46.3); Red Blood Count 4.25 M/uL (4.20-5.40)
[2023-06-14 07:52] LABS: Albumin Globulin Ratio 1.6 (0.9-2); Albumin Level 4.2 gm/dl (3.4-5.0); BUN Creatinine Ratio 10.7 (10-20); Bilirubin,Total 0.6 mg/dl (0.2-1.0); Calcium 9.2 mg/dl (8.6-10.3); Creatinine Clr Calc Pharmacy 81.9 ml/min; Est GFR (Non-African American) 77.7 ml/min; Globulin 2.6 gm/dl (2.5-4.0); Potassium 3.5 mmol/L (3.5-5.1); Total Protein 6.8 gm/dl (6.0-8.3)
[2023-06-14] MEDS: amLODIPine BESYLATE 5 MG TAB PO SCH (10:37)
--- NOTE | 2023-06-14 10:52 | Surgery Progress Note ---
Date of Service June 14, 2023 Assessment & Plan (1) Cholelithiasis: Plan: POD#1 lap cholecystectomy WBC 11. LFTs are downtrending Pt's pain improving since admit Abd soft, expected ruth incisional discomfort. incisions c/d/i, some ecchymosis of epigastric incision Continue to advance diet as tolerates Okay for discharge from our standpoint. dispo instructions reviewed f/u with dr. zaragoza in 2 weeks Admission and Anticipated Discharge Date Admission Date: June 12, 2023 Supervising Physician Co-Signing Physician Notes pnt s&e, agree with above. POD#1 lap nano, doing well, feels better. Tolerated liquids. afvss, abd soft, appropriately ttp. Incisions w/o infection. labs improving. d/c to home, f/u in 2 weeks. activity restrictions, wound care instructions, and return precautions given. Subjective Patient reports feeling better. She has some incisional discomfort but the pain she came in with is improved. She is tolerating liquids, advancing as tolerates. No nausea/vomiting. + gas. Physical Exam Physical Exam: Awake/alert, sitting up in chair Gastrointestinal (Abdomen): Inspection/Auscultation: + abdomen distended and + abdominal surgical incision (c/d/i, dermabond, no signs of infection. mild ecchymosis of epigastric site) Percussion/Palpation: + abdomen tender (expected ruth incisional discomfort) and abdomen soft; no guarding Results & Data Vital Signs (Past 12 Hours) Vital Signs Temp Pulse Pulse Resp BP BP Pulse Ox 06/14/23 10:36 69 172/91 H 06/14/23 07:06 98.2 F 75 16 169/84 H 93 06/14/23 03:20 98.4 F 73 16 147/76 H 93 06/13/23 23:33 98.2 F 80 18 154/90 H 96 O2 Del Method 06/14/23 10:36 06/14/23 07:06 Room Air 06/14/23 03:20 Room Air 06/13/23 23:33 Room Air PG Care Time/CCT Total # of Minutes Spent Total Time Spent with Patient: Total time spent is greater than 50% in coordination of care (as documented) at patient's floor/unit and/or counseling patient: Coding Level of Care Code 63633 Post Operative Follow-Up Diagnoses Cholelithiasis K80.00 Biliary obstruction: without biliary obstruction Cholecystitis acuity: acute Cholecystitis presence: with cholecystitis Cholelithiasis location: gallbladder (1) Cholelithiasis Biliary obstruction: without biliary obstruction Cholecystitis acuity: acute Cholecystitis presence: with cholecystitis Cholelithiasis location: gallbladder Qualified Code(s): K80.00 - Calculus of gallbladder with acute cholecystitis without obstruction
[2023-06-14 11:21] VITALS: BP 174/79; PULSE 67; O2SAT 95
--- NOTE | 2023-06-14 13:39 | Hospitalist Progress Note ---
Date of Service June 14, 2023 Assessment & Plan (1) Abdominal pain: Plan: 57-year-old female with past medical significant for allergic rhinitis, esophagitis, fibromyalgia, migraine, history of acute transverse myelitis, history of panic attack presents with epigastric abdominal pain. Patient states pain started after lunch and she thought it was her GERD but from 5:30 PM the pain was severe in nature which prompted her come to the ER. Pain is radiating to the sides of the upper abdomen. In the ER she was nauseous. Having chest pain when taking deep breath. When the pain is severe patient is feeling short of breath. Denies any fevers. No headache. No cough. Normal bowel and bladder movements. Symptomatic cholelithiasis with cholecystitis--POA Biliary colic Hepatic steatosis --Mild transaminitis --Gallbladder ultrasound:Small echogenic foci within the right renal parenchyma could represent a angiomyolipoma or renal calculus. Cholelithiasis without sonographic evidence of acute cholecystitis. --MRCP: Cholelithiasis. No evidence for acute cholecystitis. No biliary ductal dilatation. No common bile duct calculi. Suspected hepatic steatosis, better depicted on ultrasound. Mild hepatomegaly. --S/P laparoscopic cholecystectomy on 06/13/2023 by -- Appreciate surgery, GI input --Empirically received cefoxitin --Unable to give Flagyl due to allergy history -- Pain control Received IV fluids Monitor LFTs Discussed with surgery today: No plan to continue antibiotics on discharge Needs follow-up with surgery in 2 weeks Advance diet as tolerated H/O Esophagitis Continue IV Protonix --transition to p.o. Protonix Hypertensive urgency Started on losartan, amlodipine Hydralazine as needed Monitor BP Abnormal ECG Troponin negative ECHO: Left ventricle systolic function is normal. EF 60 to 65% with mild concentric LVH. Left ventricle wall motion is normal. No significant valvular pathology. DVT Px SCDs for now Re: Surgery CODE STATUS Full code Disposition Home Admission and Anticipated Discharge Date Admission Date: June 12, 2023 Subjective Patient is seen and examined at bedside States feeling much better today Tolerating diet Had bowel movement Denies any significant abdominal pain Blood pressure slightly elevated but denies any headache, dizziness, change in vision Also denies any chest pain, dyspnea, nausea, vomiting Prefers to be discharged home today Discussed with surgery today Review of Systems Review of Systems: All systems reviewed & are unremarkable except as noted in Subjective Physical Exam Physical Exam: Physical Exam: Vitals signs as noted above General Appearance:Obese, no apparent distress Head: normocephalic, Atraumatic Eyes: normal inspection, EOMI Neck: supple, Trachea midline Respiratory/Chest: Normal breath sounds, CTA, No accessory muscle use Cardiovascular: S1, S2, No murmur Abdomen/GI:Soft, mild tender, + surgical incisions noted, bowel sounds present Extremities/Musculoskeletal:normal inspection, no edema Neurologic/Psych:AAOX3, grossly no focal neurological deficits Skin: normal color, warm Results & Data Results & Data Vital Signs (Past 12 Hours) Vital Signs Temp Pulse Pulse Resp BP BP Pulse Ox 06/14/23 11:20 67 16 174/79 H 95 06/14/23 10:36 69 172/91 H 06/14/23 07:06 36.8 C 75 16 169/84 H 93 06/14/23 03:20 36.9 C 73 16 147/76 H 93 O2 Del Method 06/14/23 11:20 Room Air 06/14/23 10:36 06/14/23 07:06 Room Air 06/14/23 03:20 Room Air Laboratory Results Short CBC 06/14/23 Range/Units 06:52 WBC 11.10 H (4.8-10.8) K/ul Hgb 12.6 (12.0-16.0) g/dl Hct 37.9 (37.0-47.0) % Plt Count 307 (130-400) K/uL BMP 06/14/23 06:52 Sodium 141 Potassium 3.5 Chloride 106 Carbon Dioxide 26 BUN 9 Creatinine 0.84 Glucose 94 Calcium 9.2 Liver Function 06/14/23 Range/Units 06:52 Total Bilirubin 0.6 (0.2-1.0) mg/dl AST 88 H (13-39) U/L ALT 240 H (7-52) U/L Alkaline Phosphatase 159 H (34-104) U/L Albumin 4.2 (3.4-5.0) gm/dl
--- NOTE | 2023-06-14 13:43 | Discharge Summary ---
Date of Service June 14, 2023 Admission HPI Per Admitting Provider 57-year-old female with past medical history significant for allergic rhinitis, esophagitis, fibromyalgia, migraine, history of acute transverse myelitis, history of panic attack presents with epigastric abdominal pain. Patient states pain started after lunch and she thought it was her GERD but from 5:30 PM the pain was severe in nature which prompted her come to the ER. Pain is radiating to the sides of the upper abdomen. In the ER she was nauseous. Having chest pain when taking deep breath. When the pain is severe patient is feeling short of breath. Denies any fevers. No headache. No cough. Normal bowel and bladder movements. Current resting comfortably and hemodynamically stable. Past medical history. As mentioned above Past surgical history. Foot surgery. Right breast excisional biopsy. Ligation oviducts. Tonsillectomy. Bilateral cataract surgery. Total hysterectomy. Upper endoscopy. Social history. No smoking. Alcohol wine with dinner. No drug use. Family history. Mother has allergies. Asthma. Father had prostate cancer. Maternal grandmother had asthma. Admission Exam Per Admitting Provider General-Not in distress Head- atraumatic Eyes- PERRL. ENT- oropharynx clear Neck- supple, no JVD. Lungs- clear to auscultation no wheezing or crackles. Heart- regular rhythm; no murmur, no gallop. Abdomen- normal bowel sounds, soft, tenderness in epigastric region and RUQ and LUQ . Extremities- no pretibial edema, no erythema seen. Neuro- alert, oriented x 3; PERRL, no facial palsy; no dysarthria; moves extremities. Skin- warm & dry Principal Diagnosis Symptomatic cholelithiasis with cholecystitis S/P laparoscopic cholecystectomy Hypertension Discharge Data Allergies Allergy/AdvReac Type Severity Reaction Status Date / Time adhesive Allergy Intermediate Rash Verified 06/11/23 21:58 metronidazole Allergy Intermediate RASH Verified 06/11/23 21:58 Penicillins Allergy Intermediate Rash Verified 06/11/23 21:58 ethinyl estradiol AdvReac Severe SEVERE Verified 06/11/23 21:58 [From Cry[place]le (28)] GLAUCOMA norgestrel AdvReac Severe SEVERE Verified 06/11/23 21:58 [From Cryselle (28)] GLAUCOMA chocolate flavor AdvReac Intermediate COLD SORES Verified 06/11/23 21:58 AROUND MOUTH erythromycin base AdvReac Intermediate GI SYMPTOMS Verified 06/11/23 21:58 montelukast AdvReac Intermediate ABD Verified 06/11/23 21:58 PAIN,BLOATING, CONSTIPATION red (food color) AdvReac Verified 06/13/23 13:53 yellow dye AdvReac Verified 06/13/23 13:53 Consultations 06/11/23 22:05 ED Decision to Admit Stat 06/12/23 01:50 Consult General Surgery Routine 06/12/23 08:19 Consult Gastroenterology Routine Procedures Performed Operation Date: 06/13/23 10:30 Actual Procedures p Laparoscopic Cholecystectomy (Not Applicable) - Can Chambers, DO, FACS Laboratory Results WBC 11.10 K/ul (4.8-10.8) H 06/14/23 06:52 RBC 4.25 M/uL (4.20-5.40) 06/14/23 06:52 Hgb 12.6 g/dl (12.0-16.0) 06/14/23 06:52 Hct 37.9 % (37.0-47.0) 06/14/23 06:52 MCV 89.2 fL (80.0-100.0) 06/14/23 06:52 MCH 29.6 pg (25.0-34.0) 06/14/23 06:52 MCHC 33.2 g/dL (32.0-36.0) 06/14/23 06:52 RDW Std Deviation 45.1 fL (36.4-46.3) 06/14/23 06:52 RDW Coeff of Cj 14.0 % (11.5-14.5) 06/14/23 06:52 Plt Count 307 K/uL (130-400) 06/14/23 06:52 MPV 10.3 fL (9.4-12.4) 06/14/23 06:52 Immature Gran % (Auto) 0.4 % 06/12/23 05:59 Neut % (Auto) 63.7 % 06/12/23 05:59 Lymph % (Auto) 27.3 % 06/12/23 05:59 [place] % (Auto) 6.3 % 06/12/23 05:59 Eos % (Auto) 1.6 % 06/12/23 05:59 Baso % (Auto) 0.7 % 06/12/23 05:59 Neut # (Auto) 5.74 K/uL (1.40-6.50) 06/12/23 05:59 Lymph # (Auto) 2.46 K/uL (1.20-3.40) 06/12/23 05:59 [place] # (Auto) 0.57 K/uL (0.11-0.59) 06/12/23 05:59 Eos # (Auto) 0.14 K/uL (0.00-0.50) 06/12/23 05:59 Baso # (Auto) 0.06 K/uL (0.00-0.20) 06/12/23 05:59 Immature Gran # (Auto) 0.04 K/uL (0.01-0.20) 06/12/23 05:59 PT 10.1 Seconds (9.0-12.0) 06/12/23 05:59 INR 0.9 (0.9-1.1) 06/12/23 05:59 Sodium 141 mmol/L (136-145) 06/14/23 06:52 Potassium 3.5 mmol/L (3.5-5.1) 06/14/23 06:52 Chloride 106 mmol/L (98-107) 06/14/23 06:52 Carbon Dioxide 26 mmol/L (21-32) 06/14/23 06:52 Anion Gap 9 (3-11) 06/14/23 06:52 BUN 9 mg/dl (6-23) 06/14/23 06:52 Creatinine 0.84 mg/dl (0.6-1.2) 06/14/23 06:52 Est Cr Clr Drug Dosing 81.9 ml/min 06/14/23 06:52 Est GFR ( Amer) 90.0 ml/min 06/14/23 06:52 Est GFR (Non-Af Amer) 77.7 ml/min 06/14/23 06:52 BUN/Creatinine Ratio 10.7 (10-20) 06/14/23 06:52 Glucose 94 mg/dl (70-99(Fasting)) 06/14/23 06:52 Calcium 9.2 mg/dl (8.6-10.3) 06/14/23 06:52 Magnesium 2.0 mg/dl (1.7-2.4) 06/13/23 07:20 Total Bilirubin 0.6 mg/dl (0.2-1.0) 06/14/23 06:52 Direct Bilirubin 0.2 mg/dl (0-0.2) 06/13/23 07:20 AST 88 U/L (13-39) H 06/14/23 06:52 ALT 240 U/L (7-52) H 06/14/23 06:52 Alkaline Phosphatase 159 U/L (34-104) H 06/14/23 06:52 Troponin I High Sens 8.4 pg/ml (0-14) 06/12/23 05:59 Total Protein 6.8 gm/dl (6.0-8.3) 06/14/23 06:52 Albumin 4.2 gm/dl (3.4-5.0) 06/14/23 06:52 Globulin 2.6 gm/dl (2.5-4.0) 06/14/23 06:52 Albumin/Globulin Ratio 1.6 (0.9-2) 06/14/23 06:52 Lipase 18 U/L (11-82) 06/12/23 05:59 Urine Color Yellow 06/11/23 22:42 Urine Appearance Clear (Clear) 06/11/23 22:42 Urine pH 6.5 (4.5-7.5) 06/11/23 22:42 Ur Specific [place] 1.015 (1.000-1.030) 06/11/23 22:42 Urine Protein Negative (Negative) 06/11/23 22:42 Urine Glucose (UA) Negative (Negative) 06/11/23 22:42 Urine Ketones Negative (Negative) 06/11/23 22:42 Urine Blood Negative (Negative) 06/11/23 22:42 Urine Nitrite Negative (Negative) 06/11/23 22:42 Urine Bilirubin Negative (Negative) 06/11/23 22:42 Urine Urobilinogen Negative (Negative) 06/11/23 22:42 Ur Leukocyte Esterase Negative (Negative) 06/11/23 22:42 Impressions Chest X-Ray 06/11/23 19:28 XR chest 1V portable HISTORY: Chest pain, nonspecific COMPARISON: None. FINDINGS: There are low lung volumes. No pneumothorax. No pleural effusions. The cardiac silhouette is mildly enlarged. No focal lung consolidations to suggest a pneumonia. No evidence for pulmonary edema. No acute fractures. IMPRESSION: Mild cardiomegaly. Otherwise, no acute process within the chest. ACT 112: Negative or not required by law. Electronically signed by: Dashawn Geiger M.D. 06/12/2023 7:02 AM Gallbladder Ultrasound 06/11/23 19:28 Exam(s): US GALLBLADDER EXAM: US Abdomen Limited, Gallbladder CLINICAL HISTORY: Reason for exam: epigastric pain. TECHNIQUE: Real-time ultrasound of the right upper quadrant with image documentation. COMPARISON: No relevant prior studies available. FINDINGS: Liver: Fatty infiltration of the liver. Gallbladder: Cholelithiasis without sonographic evidence of acute cholecystitis. Common bile duct: Unremarkable as visualized. No stones. No dilation. Pancreas: Unremarkable as visualized. Right kidney: Small echogenic foci within the right renal parenchyma could represent a angiomyolipoma or renal calculus. No hydronephrosis. IMPRESSION: Small echogenic foci within the right renal parenchyma could represent a angiomyolipoma or renal calculus. Cholelithiasis without sonographic evidence of acute cholecystitis. Electronically signed by: Alva Purcell MD 06/11/23 21:28 PM KUB X-Ray 06/11/23 19:28 KUB HISTORY: Acute epigastric abdominal pain epigastric pain COMPARISON: Ultrasound of same day FINDINGS: No acute process of the imaged lower chest. Nonobstructive bowel gas pattern. The renal shadows are obscured by bowel gas. Moderate fecal retention. No renal calculi. No ureteral calculi. No pneumoperitoneum or pneumatosis. No fracture. IMPRESSION: Nonobstructive bowel gas pattern. ACT 112: Negative or not required by law. The above report was generated using voice recognition software. It may contain grammatical, syntax or spelling errors. Electronically signed by: Juan F Smith M.D. 06/12/2023 7:19 AM Cholangiopancreatography MRI 06/12/23 10:10 MRCP CLINICAL HISTORY: elevated LFTs TECHNIQUE: Utilizing a 1.5 Vanessa magnet and dedicated coil, multiplanar, multiecho imaging of the upper abdomen was performed utilizing heavily T2 weig hted pulsing sequences without IV contrast. COMPARISON STUDY: Right upper quadrant ultrasound and KUB June 11, 2023. FINDINGS: There is no intra or extrahepatic biliary ductal dilatation. Common bile duct measures 5 mm in caliber. No common bile duct calculi are present. There is no pancreatic ductal dilatation. Numerous gallstones within the gallbladder are present. Gallbladder is not distended. There is no gallbladder wall thickening or pericholecystic fluid. Unenhanced images of the spleen, adrenal glands, kidneys and pancreas are unremarkable. There is no hydronephrosis. No abdominal lymphadenopathy or ascites. The liver is mildly enlarged, measuring 20.1 cm in maximal sagittal dimension. Suspected hepatic steatosis is better depicted on ultrasound June 11, 2023. IMPRESSION: 1. Cholelithiasis. No evidence for acute cholecystitis. 2. No biliary ductal dilatation. No common bile duct calculi. 3. Suspected hepatic steatosis, better depicted on ultrasound. Mild hep atomegaly. ACT 112: Negative or not required by law. Electronically signed by: Sanjeev Ely M.D. 06/13/2023 7:50 AM Ordered Studies 06/11/23 19:28 US gallbladder Stat 06/12/23 10:10 MR MRCP Routine Hospital Course (1) Abdominal pain: 57-year-old female with past medical significant for allergic rhinitis, esophagitis, fibromyalgia, migraine, history of acute transverse myelitis, history of panic attack presents with epigastric abdominal pain. Patient states pain started after lunch and she thought it was her GERD but from 5:30 PM the pain was severe in nature which prompted her come to the ER. Pain is radiating to the sides of the upper abdomen. In the ER she was nauseous. Having chest pain when taking deep breath. When the pain is severe patient is feeling short of breath. Denies any fevers. No headache. No cough. Normal bowel and blad yo movements. Symptomatic cholelithiasis with cholecystitis--POA Biliary colic Hepatic steatosis --Mild transaminitis --Gallbladder ultrasound:Small echogenic foci within the right renal parenchyma could represent a angiomyolipoma or renal calculus. Cholelithiasis without sonographic evidence of acute cholecystitis. --MRCP: Cholelithiasis. No evidence for acute cholecystitis. No biliary ductal dilatation. No common bile duct calculi. Suspected hepatic steatosis, better depicted on ultrasound. Mild hepatomegaly. --S/P laparoscopic cholecystectomy on 06/13/2023 by -- Appreciate surgery, GI input --Empirically received cefoxitin --Unable to give Flagyl due to allergy history -- Pain control Received IV fluids Monitor LFTs Discussed with surgery today: No plan to continue antibiotics on discharge Needs follow-up with surgery in 2 weeks Advance diet as tolerated H/O Esophagitis Continue IV Protonix --transition to p.o. Protonix Hypertensive urgency Started on losartan, amlodipine Hydralazine as needed Monitor BP Abnormal ECG Troponin negative ECHO: Left ventricle systolic function is normal. EF 60 to 65% with mild concentric LVH. Left ventricle wall motion is normal. No significant valvular pathology. DVT Px SCDs for now Re: Surgery CODE STATUS Full code Disposition Home Total Time Total Time Spent Total Time Spent (In Minutes): 58 minutes Discharge Plan Discharge Items Patient Disposition: Home - Self-Care Reason For Visit: ABDOMINAL PAIN, GALLSTONES Discharge Diagnosis: Symptomatic cholelithiasis with cholecystitis S/P laparoscopic cholecystectomy Hypertension Activity: Per Instructions section Lifting: No more than 10 pounds Bathing Comment: may shower; no soaking in tubs/pools x 2 weeks Exercise/Sports: Wait until after follow-up appointment Driving/Machine Use: no driving while on narcotics for pain Non-emergency contact: Primary Care Provider and Surgeon Call non-emergency contact if: your pain is worsening, you have a fever, your temperature is above 101.5, your wound has increased redness, your wound has increased drainage and your wound pain has increased Follow-up/Referrals: Can Chambers DO, FACS [Physician] - 06/27/23 10:30 am (please call to schedule follow up in clinic within 2 weeks) Court Conner DO [Primary Care Provider] - (Date & Time 06/19/2023 12:00 PM Provider Kandy Reyes PA-C Department [facility] ) Diet: Regular Addtl Attending Provider Instructions: You have skin glue over your incisions called dermabond. you may shower with this on. It will tend to dissolve and fall off within a couple weeks. Do not pick at the skin glue Addtl Sensory Scientist Provider Instructions: Follow-up with your primary care physician on 06/19/2023 12:00 PM Follow-up with your surgeon on 06/27/2023 at 10:30 AM --- Monitor your blood pressure regularly at home as advised. Discuss with your physician for further adjustment of medications as needed. Seek immediate medical attention if your symptoms reoccur or worsen Please take all medications as instructed on discharge list below. Please call if you have any questions or problems. You can reach a [facility] hospitalist on duty at [facility] 24 hours a day by calling [phone] Pending Studies at Discharge: Yes Studies:: surgical pathology Stand-Alone Forms: My [facility], Smoking Cessation Medications and DC Order Prescriptions: New oxycodone 5 mg tablet 5 - 10 mg PO .[id number] PRN (Reason: pain, for initial therapy, max 6 tabs per day) Qty: 15 0RF losartan 50 mg Tablet 50 mg PO QAM Qty: 30 0RF amlodipine [Norvasc] 5 mg Tablet 5 mg PO QAM Qty: 30 0RF Continued valacyclovir [Valtrex] 500 mg tablet 500 mg PO BID PRN (Reason: Cold Sores) Qty: 30 1RF Rx Instructions: Take one table twice daily for three days when have an outbreak. cholecalciferol (vitamin D3) 2,000 unit tablet 2,000 units PO QAM phenylephrine HCl 10 mg tablet 10 mg PO Q6H PRN (Reason: Congestion) glucosamine sulfate [Glucosamine] 500 mg tablet 475 mg PO DAILY Rx Instructions: administer with a meal cetirizine 10 mg Capsule 10 mg PO QAM esomeprazole magnesium [Nexium] 20 mg Capsule,Delayed Release(Dr/Ec) 20 mg PO QAM lysine 500 mg Tablet 500 mg PO 3XWK Multivitamin 50 Plus Tablet 1 tab PO 3XWK magnesium oxide 400 mg magnesium Tablet 400 mg PO .[id number] Discharge Orders: Discharge Order (Routine); Ordered 06/14/23 Ordered By: Elvin Lopez Admission Data Admit Date/Time: 06/12/23 00:52 Attending Provider: Elvin Lopez Admit Provider: Ammon Michel Primary Care Provider: Court Conner Other Providers: Ammon Michel; Can Chambers; Tray Romo Other Interventions: Discharge Summary Assessment (RN) Last Done: 06/14/23 12:47
== END 2023-06-14 14:42 | disposition home or self-care (01) | DRG 419 ==
LOC: ED 18:55 → SUATTDRO 06-12 00:52 → 3E 06-12 00:52
DX: Z83.3 Family history of diabetes mellitus; K20.90 Esophagitis, unspecified without bleeding; K21.9 Gastro-esophageal reflux disease without esophagitis; K80.12 Calculus of gallbladder with acute and chronic cholecystitis without obstruction; I16.0 Hypertensive urgency; M79.7 Fibromyalgia; Z88.0 Allergy status to penicillin